=== PATIENT | male | born 1955 | race African-American/Black ===

== ENCOUNTER → 2017-08-17 | Outpatient (CLI) | payer MEDICARE, OTHER ==
[2016-07-16 08:51] VITALS: BP 167/100
[~2017-08-17] MED LIST: BUPIVACAINE MPF 0.25% 10 ML VIAL. ONE; IV NORMAL SALINE 250ML 250 ML ONE; LIDOCAINE 1% PF 30 ML VIAL. ONE; LISI-334 PO; MIDAZOLAM HCL PF 5 MG/5 ML VIAL. ONE; magnesium; methylPREDNISolone ACETATE 40 MG/ML VIAL. ONE; motrin; nexium; potassium; tylenol
== END | disposition home or self-care (01) ==
LOC: SURG 09:46
PROVIDERS: ATTEND Anesthesiology Pain Medicine
DX: M47.816 Spondylosis without myelopathy or radiculopathy, lumbar region (principal); M19.91 Primary osteoarthritis, unspecified site
CPT/HCPCS: 64635; 64636; J1030; J2001; J2250; J3010; J3490; J7050; 99152

== ENCOUNTER → 2017-09-04 | Outpatient (CLI) | payer MEDICARE, OTHER ==
[2016-07-16 08:51] VITALS: BP 167/100
[~2017-09-04] MED LIST changes: +DEXAMETHASONE SOD PHOS 4 MG/ML VIAL ONE; +LIDOCAINE (700MG/PATCH) PATCH. ONE; +MIDAZOLAM HCL PF 2 MG/2 ML VIAL. ONE; -MIDAZOLAM HCL PF 5 MG/5 ML VIAL. ONE; -methylPREDNISolone ACETATE 40 MG/ML VIAL. ONE
== END | disposition home or self-care (01) ==
LOC: SURG 11:59
PROVIDERS: ATTEND Anesthesiology
DX: M47.816 Spondylosis without myelopathy or radiculopathy, lumbar region (principal); I10 Essential (primary) hypertension; M19.91 Primary osteoarthritis, unspecified site; K21.9 Gastro-esophageal reflux disease without esophagitis
CPT/HCPCS: 64635; 64636; J1100; J2001; J2250; J3010; J3490; J7050

== ENCOUNTER → 2017-10-19 | Outpatient (CLI) | payer MEDICARE, OTHER ==
[2016-07-16 08:51] VITALS: BP 167/100
[~2017-10-19] MED LIST changes: -BUPIVACAINE MPF 0.25% 10 ML VIAL. ONE; -DEXAMETHASONE SOD PHOS 4 MG/ML VIAL ONE; -IV NORMAL SALINE 250ML 250 ML ONE; -LIDOCAINE (700MG/PATCH) PATCH. ONE; -LIDOCAINE 1% PF 30 ML VIAL. ONE; -MIDAZOLAM HCL PF 2 MG/2 ML VIAL. ONE
== END | disposition home or self-care (01) ==
LOC: SURG 13:06
PROVIDERS: ATTEND Anesthesiology Pain Medicine
DX: M47.816 Spondylosis without myelopathy or radiculopathy, lumbar region (principal); G89.4 Chronic pain syndrome
CPT/HCPCS: 99214

== ENCOUNTER 2018-03-01 14:16 | Inpatient (IN) | payer MEDICARE, OTHER ==
[~2018-03-01] VITALS: Ht 182.9 cm; Wt 132.0 kg
--- NOTE | 2018-03-01 15:01 | EKG ---
[address] [address] Test Date: 2018-03-01 Test Time: 14:51:00 Pat Name: FRANSISCA BACA Department: Room: Gender: M Law Clerk: YAMILETH : 1955 Requested By: DILSHAD HYDE Order Number: [id number] Reading MD: Roger Callaway MD Measurements Intervals [place] Rate: 98 P: CA: QRS: -24 QRSD: 94 T: 29 QT: 398 QTc: 510 Interpretive Statements SINUS RHYTHM NON-SPECIFIC ST/T CHANGES Electronically Signed On 03-04-2018 16:19:21 CDT by Roger Callaway MD
[2018-03-01 15:09] LABS: BASO % 0 % (0-3); EOS # 0.1 x10^3/uL (0.0-0.7); EOS % 1 % (0-3); HEMATOCRIT 40.6 % (39.0-53.0); LYMPH # 2.2 x10^3/uL (1.0-4.8); LYMPH % 30 % (24-48); MEAN CORPUSCULAR HEMOGLOBIN 33 pg (25-35); MEAN CORPUSCULAR HGB CONC 35 g/dL (31-37); MEAN CORPUSCULAR VOLUME 97 fL (79-100); MONO # 0.7 x10^3/uL (0.0-1.1); MONO % 10 % (0-9); NEUT # 4.3 x10^3uL (1.8-7.7); NEUT % 59 % (31-73); PLATELET COUNT 159 x10^3/uL (140-400); RED CELL DISTRIBUTION WIDTH 14.3 % (11.5-14.5); WHITE BLOOD COUNT 7.3 x10^3/uL (4.0-11.0)
[2018-03-01 15:27] LABS: ALBUMIN 3.7 g/dL (3.4-5.0); ALBUMIN/GLOBULIN RATIO 0.9 (1.0-1.7); CALCIUM 8.8 mg/dL (8.5-10.1); CREATININE 1.1 mg/dL (0.7-1.3); GFR 81.8; MAGNESIUM 0.9 mg/dL (1.8-2.4); TOTAL BILIRUBIN 1.1 mg/dL (0.2-1.0); TOTAL PROTEIN 7.9 g/dL (6.4-8.2)
[2018-03-01 15:28] LABS: POTASSIUM 2.7 mmol/L (3.5-5.1)
--- NOTE | 2018-03-01 16:23 | PHYS DOC ---
Past History Past Medical History: Arthritis, Hypertension Past Surgical History: Knee Replacement Smoking: Non-smoker Alcohol Use: None Additional Alcohol Information: PT. QUIT 2 YEARS AGO. Drug Use: None Adult General Chief Complaint Chief Complaint: Abnormal labs HPI HPI 63-year-old male patient with history of hypertension had routine blood test at his doctor's office this morning and was told that he had abnormal potassium and magnesium and needs to come to emergency room. Patient denies any complaint. She states he had history of alcoholism but did not have alcohol abuse for the last 2 years. Review of Systems Review of Systems Constitutional: Denies fever or chills [] Eyes: Denies change in visual acuity, redness, or eye pain [] HENT: Denies nasal congestion or sore throat [] Respiratory: Denies cough or shortness of breath [] Cardiovascular: No additional information not addressed in HPI [] GI: Denies abdominal pain, nausea, vomiting, bloody stools or diarrhea [] : Denies dysuria or hematuria [] Musculoskeletal: Denies back pain or joint pain [] Integument: Denies rash or skin lesions [] Neurologic: Denies headache, focal weakness or sensory changes [] Endocrine: Denies polyuria or polydipsia [] All other systems were reviewed and found to be within normal limits, except as documented in this note. Current Medications Current Medications Current Medications Medications (Trade) Dose Ordered Sig/Howie Start Time Stop Time Status Last Admin Dose Admin Potassium Chloride 100 ml @ 50 mls/hr Q1H 03/01/18 16:15 03/01/18 18:14 Allergies Allergies Allergies Coded Allergies Type Severity Reaction Last Updated Verified No Known Drug Allergies 03/29/16 No Physical Exam Physical Exam Constitutional: Well developed, well nourished, no acute distress, non-toxic appearance. [] HENT: Normocephalic, atraumatic Eyes: PERRLA, EOMI, conjunctiva normal, no discharge. [] Neck: Normal range of motion, no tenderness, supple, no stridor. [] Cardiovascular:Heart rate regular rhythm, no murmur [] Lungs & Thorax: Bilateral breath sounds clear to auscultation [] Abdomen: Bowel sounds normal, soft, no tenderness, no masses, no pulsatile masses. [] Skin: Warm, dry, no erythema, no rash. [] Back: No tenderness, no CVA tenderness. [] Extremities: No tenderness, no cyanosis, no clubbing, ROM intact, no edema. [] Neurologic: Alert and oriented X 3, normal motor function, normal sensory function, no focal deficits noted. [] Psychologic: Affect normal, judgement normal, mood normal. [] Current Patient Data Vital Signs Vital Signs Date Time Temp Pulse Resp B/P (MAP) Pulse Ox O2 Delivery O2 Flow Rate FiO2 03/01/18 14:56 98.6 113 18 97 Room Air Lab Results Laboratory Tests Test 03/01/18 14:50 03/01/18 16:05 White Blood Count 7.3 x10^3/uL (4.0-11.0) Red Blood Count 4.20 x10^6/uL (4.30-5.70) L Hemoglobin 14.0 g/dL (13.0-17.5) Hematocrit 40.6 % (39.0-53.0) Mean Corpuscular Volume 97 fL (79-100) Mean Corpuscular Hemoglobin 33 pg (25-35) Mean Corpuscular Hemoglobin Concent 35 g/dL (31-37) Red Cell Distribution Width 14.3 % (11.5-14.5) Platelet Count 159 x10^3/uL (140-400) Neutrophils (%) (Auto) 59 % (31-73) Lymphocytes (%) (Auto) 30 % (24-48) Monocytes (%) (Auto) 10 % (0-9) H Eosinophils (%) (Auto) 1 % (0-3) Basophils (%) (Auto) 0 % (0-3) Neutrophils # (Auto) 4.3 x10^3uL (1.8-7.7) Lymphocytes # (Auto) 2.2 x10^3/uL (1.0-4.8) Monocytes # (Auto) 0.7 x10^3/uL (0.0-1.1) Eosinophils # (Auto) 0.1 x10^3/uL (0.0-0.7) Basophils # (Auto) 0.0 x10^3/uL (0.0-0.2) Sodium Level 135 mmol/L (136-145) L Potassium Level 2.7 mmol/L (3.5-5.1) *L Chloride Level 97 mmol/L (98-107) L Carbon Dioxide Level 25 mmol/L (21-32) Anion Gap 13 (6-14) Blood Urea Nitrogen 13 mg/dL (8-26) Creatinine 1.1 mg/dL (0.7-1.3) Estimated GFR (Cockcroft-Gault) 81.8 BUN/Creatinine Ratio 12 (6-20) Glucose Level 135 mg/dL (70-99) H Calcium Level 8.8 mg/dL (8.5-10.1) Phosphorus Level 1.0 mg/dL (2.6-4.7) L Magnesium Level 0.9 mg/dL (1.8-2.4) L Total Bilirubin 1.1 mg/dL (0.2-1.0) H Aspartate Amino Transferase (AST) 154 U/L (15-37) H Alanine Aminotransferase (ALT) 79 U/L (16-63) H Alkaline Phosphatase 116 U/L (46-116) Total Protein 7.9 g/dL (6.4-8.2) Albumin 3.7 g/dL (3.4-5.0) Albumin/Globulin Ratio 0.9 (1.0-1.7) L Glucose (Fingerstick) 124 mg/dL (70-99) H EKG EKG [] Radiology/Procedures Radiology/Procedures [] Course & Med Decision Making Course & Med Decision Making Pertinent Labs reviewed. (See chart for details) Evaluation of patient in ER showed 63-year-old male patient with abnormal labs from physician office. Patient had potassium of 2.7 without any complaint. IV potassium was started. Dr Rodney informed at 1602 and agreed with admission of patient. Dragon Disclaimer Dragon Disclaimer This electronic medical record was generated, in whole or in part, using a voice recognition dictation system. Departure Departure: Impression: Primary Impression: Hypokalemia Disposition: ADMITTED INPATIENT (at 1602) Admitting Physician: Silvio Rodney Condition: IMPROVED Referrals: AKUA NEWMAN MD (PCP) DILSHAD HYDE MD Mar 01, 2018 16:23
[2018-03-01] MEDS: POTASSIUM CHLORIDE 20MEQ 100 ML IV SCH ×2 (16:44→17:15)
[2018-03-01] MEDS ORDERED: SPIR100T2 PO (17:58)
[2018-03-01] MEDS ORDERED: OMEP10CA3 PO (17:58)
[2018-03-01] MEDS ORDERED: HYDR25TA9 PO (17:58)
[2018-03-01] MEDS ORDERED: LISI40TA PO (17:58)
[2018-03-01 18:05] VITALS: BP 135/87
[2018-03-01] MEDS ORDERED: POTASSIUM CHLORIDE 20 MEQ TABLET.ER. PO ONE ×2 (18:30→19:30)
[2018-03-01] MEDS ORDERED: MAGNESIUM SULFATE 2GM 50 ML IV ONE (18:45)
[2018-03-01] MEDS: MAGNESIUM OXIDE 400 MG TABLET PO SCH (19:36)
[2018-03-01 19:55] VITALS: BP 125/77
[2018-03-01 20:41] LABS: CALCIUM 8.8 mg/dL (8.5-10.1); CREATININE 1.2 mg/dL (0.7-1.3); MAGNESIUM 1.4 mg/dL (1.8-2.4); POTASSIUM 3.1 mmol/L (3.5-5.1)
[2018-03-01 22:37] VITALS: BP 123/80
[2018-03-02] VITALS (7 sets, daily range): BP systolic 114–152; BP diastolic 83–96
[2018-03-02] MEDS: PANTOPRAZOLE 40 MG TABLET. PO SCH (05:28)
[2018-03-02 06:42] LABS: BASO % 0 % (0-3); EOS # 0.1 x10^3/uL (0.0-0.7); EOS % 2 % (0-3); HEMATOCRIT 37.8 % (39.0-53.0); HEMOGLOBIN 13.1 g/dL (13.0-17.5); LYMPH # 1.7 x10^3/uL (1.0-4.8); LYMPH % 31 % (24-48); MEAN CORPUSCULAR HEMOGLOBIN 34 pg (25-35); MEAN CORPUSCULAR HGB CONC 35 g/dL (31-37); MEAN CORPUSCULAR VOLUME 98 fL (79-100); MONO # 0.7 x10^3/uL (0.0-1.1); MONO % 13 % (0-9); NEUT % 54 % (31-73); PLATELET COUNT 134 x10^3/uL (140-400); RED BLOOD COUNT 3.87 x10^6/uL (4.30-5.70); RED CELL DISTRIBUTION WIDTH 14.4 % (11.5-14.5); WHITE BLOOD COUNT 5.6 x10^3/uL (4.0-11.0)
[2018-03-02 07:20] LABS: ALBUMIN 3.2 g/dL (3.4-5.0); ALBUMIN/GLOBULIN RATIO 0.9 (1.0-1.7); CALCIUM 8.6 mg/dL (8.5-10.1); CREATININE 0.9 mg/dL (0.7-1.3); GFR 103.1; POTASSIUM 3.1 mmol/L (3.5-5.1); TOTAL BILIRUBIN 0.8 mg/dL (0.2-1.0); TOTAL PROTEIN 6.9 g/dL (6.4-8.2)
[2018-03-02] MEDS ORDERED: POTASSIUM CHLORIDE 20 MEQ TABLET.ER. PO ONE ×3 (08:00→10:00)
[2018-03-02] MEDS ORDERED: MAGNESIUM SULFATE 2GM 50 ML IV ONE (08:00)
[2018-03-02] MEDS: SPIRONOLACTONE 25 MG TABLET PO SCH (08:16)
[2018-03-02] MEDS: MAGNESIUM OXIDE 400 MG TABLET PO SCH ×3 (08:17→20:51)
[2018-03-02] MEDS: LISINOPRIL 20 MG TABLET PO SCH (08:17)
[2018-03-02] MEDS ORDERED: PANTOPRAZOLE 40 MG TABLET. PO SCH (09:00)
[2018-03-02] MEDS ORDERED: MAGN400T22 PO (10:30)
[2018-03-02] MEDS ORDERED: POTA20TA4 PO (10:30)
[2018-03-02 11:49] LABS: CALCIUM 8.8 mg/dL (8.5-10.1); GFR 91.3; MAGNESIUM 1.7 mg/dL (1.8-2.4); POTASSIUM 3.5 mmol/L (3.5-5.1)
--- NOTE | 2018-03-02 15:25 | HP ---
ADMIT DATE: 03/01/2018 HISTORY OF PRESENT ILLNESS: The patient is a 63-year-old -[place] male patient who apparently was seen at his doctor's office and was told he had abnormally low potassium, low magnesium and needs to come to the Emergency Room. The patient himself denied any complaint. He stated that he has history of alcoholism, but not had any alcohol the last 3 years. On questioning him further, he denied any other complaint. PAST MEDICAL HISTORY: Significant for hypertension, generalized osteoarthritis, and hiatal hernia. PAST SURGICAL HISTORY: Significant for arthroscopic bilateral knee surgery; right ankle fracture, status post open reduction and internal fixation; right big toe fracture, right middle finger fracture, status post open reduction and internal fixation; back surgery, esophagogastroduodenoscopy and colonoscopy as well as prostatectomy for prostate cancer. ALLERGIES: He has no known drug allergies. MEDICATIONS: He is currently on following medications: He is on lisinopril 40 mg once a day, spironolactone 100 mg once a day, potassium chloride 20 mEq twice a day, hydrochlorothiazide 25 mg daily. He is on magnesium oxide 1200 mg twice a day and omeprazole 10 mg once a day. FAMILY HISTORY: He has 6 brothers and 2 sisters, 4 of his brothers are . The oldest was 62 and of CVA, second one was about 52 years old and of myocardial infarction, third was 50 years old and because of prostate cancer and fourth because of drug overdose at age of 30. His oldest sister at age of 65 because of congestive heart failure. His younger sister at age of 33 because of drug overdose. His father at the age of 77 because of prostate cancer and mother at the age of 90 because of old age. SOCIAL HISTORY: He is , has 1 son and 2 daughters, never smoked, used to be heavy alcohol drinker, quit drinking about 2 years ago. He has been a heavy drinker for almost 18 years. Drinks whatever comes into his hand and drinks both beer and liquor. Used marijuana before. He is retired from the . REVIEW OF SYSTEMS: The patient denied any blurring of vision, cataract, glaucoma or macular degeneration. Denied any earache, tinnitus or sensorineural deafness. Denied any nosebleeds, stuffy nose or postnasal drip. Denied any sore throat, sore tongue, toothache, hoarseness of voice or difficulty swallowing. Denied any nausea, vomiting, diarrhea or constipation. Denied any hematemesis, melena or hematochezia. Denied any dysuria, frequency or hematuria. Denied any chest pain, shortness of breath, orthopnea, or paroxysmal nocturnal dyspnea. Denied any cough, phlegm or hemoptysis. Denied any chills, rigors, or fever. Denied any dizziness, lightheadedness, or vertigo. PHYSICAL EXAMINATION: GENERAL: On arrival to the Emergency Room, he looked well and was clearly in no apparent respiratory distress. No pallor, jaundice, cyanosis, or thyromegaly. No jugular venous distension. No lower limb edema. VITAL SIGNS: His heart rate was 113, blood pressure was 129/70, temperature was 98.6, respiratory rate was 18 and oxygen saturation was 97% on room air. HEAD, EYES, EARS, NOSE AND THROAT: Showed normocephalic, atraumatic. NECK: Supple. HEART: Showed normal first and second heart sounds with no gallop, rub or murmur. CHEST: Clear to auscultation. No crepitation or rhonchi. ABDOMEN: Distended, soft, nontender. NEUROLOGIC: He was awake, alert, responding appropriately. All cranial nerves intact. EXTREMITIES: He moves extremities without difficulty, ambulates without assistance or assistive devices. LABORATORY DATA: In the Emergency Room showed a white cell count 7300, hemoglobin 14, hematocrit 40, MCV 97 and platelet count of 159,000 with normal manual differential. His chemistry showed serum sodium 135, potassium 2.7, chloride 97, bicarbonate 25, anion gap of 13, BUN 13, creatinine 1.1, estimated GFR was 82 mL per minute. His glucose was 135. His calcium was 8.8, phosphorus 1, magnesium was 0.9. Total bilirubin and alkaline phosphatase normal. AST, ALT slightly elevated. His total protein was 7.9, albumin was 3.7. ASSESSMENT AND PLAN: In summary, this is a 63-year-old -[place] male patient who came with multiple biochemical anomalies including hypokalemia, hypomagnesemia, and hypophosphatemia. His hypokalemia and hypomagnesemia can be explained on the basis of side effect of hydrochlorothiazide. I am unable to explain his extreme hypophosphatemia, given that he is not actually alcoholic at least for the time being, he is not septic. He is not on the ventilator. He does not seem to have any evidence of malabsorption. My plan is to obviously continue to replenish his potassium, magnesium and phosphorus. HERRERA SUAREZ MD DR: MINE/hilda JOB#: [id number] / [id number]
[2018-03-03] MEDS: PANTOPRAZOLE 40 MG TABLET. PO SCH (05:40)
[2018-03-03 05:42] VITALS: BP 134/94
[2018-03-03 06:02] LABS: CALCIUM 8.7 mg/dL (8.5-10.1); CREATININE 0.8 mg/dL (0.7-1.3); GFR 118.1; MAGNESIUM 1.3 mg/dL (1.8-2.4); PHOSPHORUS 1.2 mg/dL (2.6-4.7)
[2018-03-03] MEDS: LISINOPRIL 20 MG TABLET PO SCH (08:26)
[2018-03-03] MEDS: MAGNESIUM OXIDE 400 MG TABLET PO SCH (08:26)
[2018-03-03] MEDS: SPIRONOLACTONE 25 MG TABLET PO SCH (08:26)
[2018-03-03] MEDS ORDERED: MAGNESIUM SULFATE 2GM 50 ML IV ONE (09:00)
[2018-03-03] MEDS ORDERED: MAGNESIUM OXIDE 400 MG TABLET PO SCH (09:00)
[2018-03-03 11:23] VITALS: BP 120/80
--- NOTE | 2018-03-03 11:52 | PN ---
DATE: 03/02/2018 SUBJECTIVE: The patient is sitting on the edge of the bed comfortably in no apparent distress. He denied any complaint. He came yesterday as a referral from his primary care physician with abnormal lab work including hypokalemia, hypomagnesemia and hypophosphatemia. His magnesium was extremely low at 0.9. His phosphorus was 1 and potassium was 2.7. We did replenish his potassium and is now 3.5 and his magnesium is up to 1.7. His liver enzymes continued to be slightly elevated; however, his phosphorus is low. PHYSICAL EXAMINATION: GENERAL: When I examined him this morning, he looked well and was clearly in no apparent respiratory distress. There is no pallor, jaundice, cyanosis, or thyromegaly. No jugular venous distension. No lower limb edema. VITAL SIGNS: His heart rate was 90, blood pressure 119/83, temperature was 98.4, respiratory rate was 20, and oxygen saturation was 93% on room air. HEAD, EYES, EARS, NOSE AND THROAT: Showed normocephalic, atraumatic. NECK: Supple. HEART: Showed normal first and second heart sounds. No gallop, rub or murmur. CHEST: Clear to auscultation. No crepitation or rhonchi. ABDOMEN: Distended, soft, nontender. NEUROLOGIC: He was awake, alert, responding appropriately. All cranial nerves intact. He moves extremities without difficulty, ambulates without assistance or assistive devices. His intake was 600, no output was recorded. LABORATORY DATA: As of this morning showed a serum sodium 136, potassium 3.5, chloride 100, bicarbonate 25, anion gap of 11, BUN 10, creatinine 1, estimated GFR was 92 mL per minute. His glucose was 153, calcium was 8.8, and magnesium was 1.7. His white cell count was 5600, hemoglobin 13, hematocrit 38, MCV 98 and platelet count of 134,000. ASSESSMENT: Hypokalemia and hypomagnesemia, most likely the result of hydrochlorothiazide. I did ask the patient to discontinue this medication altogether as his blood pressure seems to be well controlled without it. He is already on lisinopril, spironolactone and potassium. I think once his hydrochlorothiazide was discontinued, hypophosphatemia. PLAN: I will arrange for him to check his intact PTH and decide on further management accordingly as his calcium is not elevated; however, he might have hypoparathyroidism. He might need to be referred to a real estate administrative assistant or an wood mechanist to investigate this further. HERRERA SUAREZ MD DR: MINE/hilda JOB#: [id number] / [id number]
--- NOTE | 2018-03-03 21:09 | DS ---
DATE OF DISCHARGE: 03/03/2018 HOSPITAL COURSE: The patient is resting, slightly propped up in bed, in no apparent respiratory distress. Questioning him, he denied any complaint. Nursing staff, however, stated that his magnesium and phosphate are low; however, his potassium is much improved now, is 4 mEq per liter. PHYSICAL EXAMINATION: GENERAL: When I examined him this morning, he looked well and was clearly in no apparent respiratory distress, pale. No jaundice, cyanosis, or thyromegaly. No jugular venous distension. No limb edema. VITAL SIGNS: His heart rate was 87, blood pressure 134/94, temperature was 98.2, respiratory rate was 87, and his oxygen saturation was 95% on room air. HEAD, EYES, EARS, NOSE AND THROAT: Showed normocephalic, atraumatic. NECK: Supple. HEART: Showed normal first and second heart sounds with no gallop, rub or murmur. CHEST: Clear to auscultation. No crepitation or rhonchi. ABDOMEN: Distended, soft. No guarding or rigidity. No organomegaly. All hernial orifices intact. Bowel sounds normal. NEUROLOGIC: He was awake, alert, responding appropriately. His cranial nerves intact. EXTREMITIES: He moves extremities without difficulty. He ambulates without assistance or assistive devices. His intake was 518. No output was recorded. LABORATORY DATA: As of this morning showed a serum sodium 138, potassium 4, chloride 104, bicarbonate 23, anion gap of 11, BUN 9, creatinine 0.8, estimated GFR was 118 mL per minute, his glucose 121, calcium was 8.7, phosphorus 1.2, magnesium was 1.3. His ammonia was 39. His prothrombin time was 11.7, INR 1.1. His white cell count was 5600, hemoglobin 13, hematocrit 38, MCV 98 and platelet count 134. DISCHARGE MEDICATIONS: He was discharged to continue lisinopril 40 mg once a day, magnesium oxide 1600 mg twice a day, omeprazole 10 mg once a day, potassium chloride 20 mEq twice a day and spironolactone 100 mg once a day. I did discontinue his hydrochlorothiazide. FINAL DISCHARGE DIAGNOSES: Hypokalemia and hypomagnesemia, most likely secondary to his hydrochlorothiazide. They did recommend that the patient should discontinue that. Hypophosphatemia, I have not found any explanation for that. I have ordered intact PTH to see whether he has a primary hyperparathyroidism, although his calcium is normal. I asked him to contact the lab as this is as doubt and it will be available next Sunday. He should repeat his lab work again in a few days to make sure that his potassium remained stable. He may not require the potassium and spironolactone once hydrochlorothiazide was removed. HERRERA SUAREZ MD DR: MINE/hilda JOB#: [id number] / [id number]
[2018-03-04 17:13] LABS: CALCIUM PTH 8.9 mg/dL (8.6-10.2); CREATININE PTH 0.78 mg/dL (0.76-1.27); PTH INTACT 29 pg/mL (15-65)
== END 2018-03-03 12:25 | disposition home or self-care (01) | DRG 642 ==
LOC: ER 14:16 → 1 SOUTH 17:05
PROVIDERS: ADMIT Internal Medicine; ATTEND Internal Medicine
DX: E83.39 Other disorders of phosphorus metabolism (principal); E87.6 Hypokalemia; E83.42 Hypomagnesemia; I10 Essential (primary) hypertension; M15.9 Polyosteoarthritis, unspecified; F10.21 Alcohol dependence, in remission; Z96.659 Presence of unspecified artificial knee joint; T50.2X5A Adverse effect of carbonic-anhydrase inhibitors, benzothiadiazides and other diuretics, initial encounter; Z80.42 Family history of malignant neoplasm of prostate; Z82.3 Family history of stroke; Z82.49 Family history of ischemic heart disease and other diseases of the circulatory system; Z85.46 Personal history of malignant neoplasm of prostate; Z87.81 Personal history of (healed) traumatic fracture; Y92.89 Other specified places as the place of occurrence of the external cause; Z90.79 Acquired absence of other genital organ(s)
CPT/HCPCS: 36415; 80048; 80053; 82140; 82947; 83735; 83970; 84100; 85025; 85610; 93005; J3475; J3480; 99285-25

== ENCOUNTER → 2018-03-26 | Outpatient (CLI) | payer MEDICARE, OTHER ==
[2018-03-03 11:23] VITALS: BP 120/80
[~2018-03-26] MED LIST changes: +HYDR25TA9 PO; +LISI40TA PO; +MAGN400T22 PO; +OMEP10CA3 PO; +POTA20TA4 PO; +SPIR100T2 PO
== END | disposition home or self-care (01) ==
LOC: SURG 11:28
PROVIDERS: ATTEND Anesthesiology
DX: M54.5 Low back pain (principal)
CPT/HCPCS: 99214

== ENCOUNTER → 2018-08-30 | Outpatient (CLI) | payer MEDICARE, OTHER ==
[~2018-08-30] MED LIST changes: +BUPIVACAINE MPF 0.5% 30 ML VIAL. ONE; +DEXAMETHASONE SOD PHOS 4 MG/ML VIAL ONE; +LIDOCAINE 1% PF 30 ML VIAL. ONE; -SPIR100T2 PO; +SPIR100T4 PO
== END | disposition home or self-care (01) ==
LOC: SURG 09:11
PROVIDERS: ATTEND Anesthesiology Pain Medicine
DX: M47.816 Spondylosis without myelopathy or radiculopathy, lumbar region (principal); I10 Essential (primary) hypertension; G47.30 Sleep apnea, unspecified; M19.90 Unspecified osteoarthritis, unspecified site; Z79.899 Other long term (current) drug therapy; Z98.890 Other specified postprocedural states
CPT/HCPCS: 64493; 64494; J1100; J2001; J3490

== ENCOUNTER → 2018-09-24 | Day surgery (SDC) | payer MEDICARE, OTHER ==
[~2018-09-24] MED LIST changes: +BUPIVACAINE MPF 0.25% 30 ML VIAL. ONE; -BUPIVACAINE MPF 0.5% 30 ML VIAL. ONE; +GABA-586 PO; +IV RINGERS SOLUTION,LACTATED 1,000 ML IV SCH; +MIDAZOLAM HCL PF 2 MG/2 ML VIAL. ONE; +OXYC5CAP PO
[2018-09-24 09:40] VITALS: BP 115/76
== END | disposition home or self-care (01) ==
LOC: SURG 07:21
PROVIDERS: ATTEND Anesthesiology
DX: M47.816 Spondylosis without myelopathy or radiculopathy, lumbar region (principal); Z88.5 Allergy status to narcotic agent; I10 Essential (primary) hypertension; M19.90 Unspecified osteoarthritis, unspecified site; Z85.46 Personal history of malignant neoplasm of prostate; Z98.890 Other specified postprocedural states; Z79.899 Other long term (current) drug therapy
CPT/HCPCS: 64635; 64636; 99152; J1100; J2001; J2250; J3010; J3490; J7120

== ENCOUNTER → 2018-11-01 | Day surgery (SDC) | payer MEDICARE, OTHER ==
[~2018-11-01] MED LIST changes: -DEXAMETHASONE SOD PHOS 4 MG/ML VIAL ONE; +HYDR-2145 PO; -HYDR25TA9 PO; -IV RINGERS SOLUTION,LACTATED 1,000 ML IV SCH; +methylPREDNISolone ACETATE 40 MG/ML VIAL. ONE
[2018-11-01 10:23] VITALS: BP 127/78
== END | disposition home or self-care (01) ==
LOC: SURG 07:42
PROVIDERS: ATTEND Anesthesiology Pain Medicine
DX: M47.816 Spondylosis without myelopathy or radiculopathy, lumbar region (principal); I10 Essential (primary) hypertension; M19.90 Unspecified osteoarthritis, unspecified site; Z85.46 Personal history of malignant neoplasm of prostate; Z98.890 Other specified postprocedural states; Z88.5 Allergy status to narcotic agent; Z79.899 Other long term (current) drug therapy
CPT/HCPCS: 64635; 64636; J1030; J2001; J2250; J3010; J3490

== ENCOUNTER → 2020-09-15 | Outpatient (CLI) | payer MEDICARE, OTHER ==
[~2020-09-15] MED LIST changes: +BUPIVACAINE MPF 0.25% 10 ML VIAL. ONE; -BUPIVACAINE MPF 0.25% 30 ML VIAL. ONE; -MIDAZOLAM HCL PF 2 MG/2 ML VIAL. ONE; -OMEP10CA3 PO; +OMEP10CA4 PO; +OMEP20TA63 PO; +SILD50TA PO; -methylPREDNISolone ACETATE 40 MG/ML VIAL. ONE
[2020-09-15 14:08] VITALS: BP 130/84
== END | disposition home or self-care (01) ==
LOC: SURG 12:44
PROVIDERS: ATTEND Anesthesiology
DX: M47.816 Spondylosis without myelopathy or radiculopathy, lumbar region (principal); M51.36 Other intervertebral disc degeneration, lumbar region; M79.10 Myalgia, unspecified site; Z79.899 Other long term (current) drug therapy; Z88.6 Allergy status to analgesic agent; Z88.8 Allergy status to other drugs, medicaments and biological substances; Z98.890 Other specified postprocedural states
CPT/HCPCS: 64493; 64494; J2001; J3490

== ENCOUNTER → 2020-10-27 | Day surgery (SDC) | payer MEDICARE, OTHER ==
[2020-10-27 11:25] VITALS: BP 141/89
== END | disposition home or self-care (01) ==
LOC: SURG 10:33
PROVIDERS: ATTEND Anesthesiology
DX: M47.816 Spondylosis without myelopathy or radiculopathy, lumbar region (principal); M79.10 Myalgia, unspecified site; M19.91 Primary osteoarthritis, unspecified site; F10.21 Alcohol dependence, in remission; K21.9 Gastro-esophageal reflux disease without esophagitis; Z79.899 Other long term (current) drug therapy; Z88.5 Allergy status to narcotic agent; Z88.8 Allergy status to other drugs, medicaments and biological substances; Z82.3 Family history of stroke; Z80.42 Family history of malignant neoplasm of prostate; Z96.669 Presence of unspecified artificial ankle joint; Z96.653 Presence of artificial knee joint, bilateral; Z85.46 Personal history of malignant neoplasm of prostate; Z87.81 Personal history of (healed) traumatic fracture; Z90.79 Acquired absence of other genital organ(s); Z82.49 Family history of ischemic heart disease and other diseases of the circulatory system
CPT/HCPCS: 64493; 64494; J2001; J3490

== ENCOUNTER → 2021-01-19 | Day surgery (SDC) | payer MEDICARE, OTHER ==
[~2021-01-19] MED LIST changes: +BUPIVACAINE MPF 0.25% 10 ML VIAL. IJ ONE; +DEXAMETHASONE SOD PHOS 4 MG/ML VIAL. INT ART ONE; +DEXAMETHASONE SOD PHOS 4 MG/ML VIAL. ONE; +LIDOCAINE 1% PF 30 ML VIAL. INJ ONE; -LISI-334 PO; +LISI20TA18 PO; -LISI40TA PO; +LISI40TA6 PO; +MIDAZOLAM HCL PF 2 MG/2 ML VIAL. IVP ONE; +MIDAZOLAM HCL PF 2 MG/2 ML VIAL. ONE
[2021-01-19 09:42] VITALS: BP 133/91
== END | disposition home or self-care (01) ==
LOC: SURG 07:47
PROVIDERS: ATTEND Anesthesiology
DX: M47.816 Spondylosis without myelopathy or radiculopathy, lumbar region (principal); G47.30 Sleep apnea, unspecified; I10 Essential (primary) hypertension; M19.91 Primary osteoarthritis, unspecified site; Z88.5 Allergy status to narcotic agent; Z88.8 Allergy status to other drugs, medicaments and biological substances; Z79.899 Other long term (current) drug therapy; Z88.6 Allergy status to analgesic agent; Z82.3 Family history of stroke; Z80.42 Family history of malignant neoplasm of prostate; Z96.653 Presence of artificial knee joint, bilateral; Z98.890 Other specified postprocedural states; Z87.81 Personal history of (healed) traumatic fracture; Z90.79 Acquired absence of other genital organ(s); Z82.49 Family history of ischemic heart disease and other diseases of the circulatory system
CPT/HCPCS: 64635; 64636; 99152; 99153; J1100; J2250; J3010; J3490; 62321

== ENCOUNTER → 2021-03-23 | Day surgery (SDC) | payer MEDICARE, OTHER ==
[~2021-03-23] MED LIST changes: -BUPIVACAINE MPF 0.25% 10 ML VIAL. IJ ONE; +BUPIVACAINE MPF 0.25% 30 ML VIAL. INJ ONE; +DEXAMETHASONE SOD PHOS 10 MG/ML VIAL. ONE; -DEXAMETHASONE SOD PHOS 4 MG/ML VIAL. INT ART ONE; +IOHEXOL 300 MG/ML 50 ML VIAL. INT ART ONE; +LIDOCAINE 1% Multi-Dose 20 ML VIAL. INJ ONE; -LIDOCAINE 1% PF 30 ML VIAL. INJ ONE; -MIDAZOLAM HCL PF 2 MG/2 ML VIAL. IVP ONE; +methylPREDNISolone ACETATE 80 MG/ML VIAL. INT ART ONE
[2021-03-23 09:46] VITALS: BP 139/85
== END | disposition home or self-care (01) ==
LOC: SURG 07:38
PROVIDERS: ATTEND Anesthesiology
DX: M47.816 Spondylosis without myelopathy or radiculopathy, lumbar region (principal); M51.36 Other intervertebral disc degeneration, lumbar region; E66.9 Obesity, unspecified; G47.30 Sleep apnea, unspecified; I10 Essential (primary) hypertension; K21.9 Gastro-esophageal reflux disease without esophagitis; M19.90 Unspecified osteoarthritis, unspecified site; Z90.79 Acquired absence of other genital organ(s); Z96.653 Presence of artificial knee joint, bilateral; Z79.899 Other long term (current) drug therapy; Z88.5 Allergy status to narcotic agent; Z88.8 Allergy status to other drugs, medicaments and biological substances; Z98.890 Other specified postprocedural states; Z82.3 Family history of stroke; Z82.49 Family history of ischemic heart disease and other diseases of the circulatory system
CPT/HCPCS: 64635; 64636; 99152; J1040; J1100; J2250; J3010; J3490; Q9967

== ENCOUNTER 2021-07-17 08:52 | Inpatient (IN) | payer MEDICARE, OTHER ==
[~2021-07-17] VITALS: Ht 188 cm; Wt 155.6 kg
[~2021-07-17 08:52] MED LIST changes: -BUPIVACAINE MPF 0.25% 10 ML VIAL. ONE; -BUPIVACAINE MPF 0.25% 30 ML VIAL. INJ ONE; -DEXAMETHASONE SOD PHOS 10 MG/ML VIAL. ONE; -DEXAMETHASONE SOD PHOS 4 MG/ML VIAL. ONE; -IOHEXOL 300 MG/ML 50 ML VIAL. INT ART ONE; -LIDOCAINE 1% Multi-Dose 20 ML VIAL. INJ ONE; -LIDOCAINE 1% PF 30 ML VIAL. ONE; -MIDAZOLAM HCL PF 2 MG/2 ML VIAL. ONE; +POTA-121 PO; -POTA20TA4 PO; -methylPREDNISolone ACETATE 80 MG/ML VIAL. INT ART ONE
--- NOTE | 2021-07-17 09:02 | PHYS DOC ---
Past History Past Medical History: Arthritis, Hypertension Past Surgical History: Knee Replacement Smoking: Non-smoker Alcohol Use: None Drug Use: None Adult General HPI HPI Patient is a 66-year-old male presenting via EMS for lower extremity swelling. This is an acute on chronic issue. Reports his lower extremities have been swelling more so than usual past month. He does admit he has been drinking more water over the past several weeks due to increased heat but admits he has been compliant with sodium restriction and taking all daily medications specifically lisinopril and spironolactone. He does not know what heart issues he has, he is established at [facility] for all of his health care, does admit he has a pulmonary function technician there and recently had an echocardiogram performed for which she does not know the results of. He is otherwise presenting in no acute distress, denies any headache, vision changes, chest pain, ripping or tearing sensation in chest, shortness of breath, abdominal pain, bladder or bowel issues Review of Systems Review of Systems Fourteen body systems of review of systems have been reviewed. See HPI for pertinent positives and negative responses, other mcgee all other systems are negative, non-pertinent or non-contributory Allergies Allergies Allergies Coded Allergies Type Severity Reaction Last Updated Verified morphine Allergy Unknown 03/23/21 Yes Uncoded Allergies Type Severity Reaction Last Updated Verified LOBSTER Allergy Unknown hives 09/15/20 Physical Exam Physical Exam Constitutional: Well developed, well nourished, no acute distress, non-toxic appearance. HENT: Normocephalic, atraumatic, bilateral external ears normal, oropharynx moist, no oral exudates, nose normal. Eyes: PERRLA, EOMI, conjunctiva normal, no discharge. Neck: Normal range of motion, no tenderness, supple, no stridor. Cardiovascular: Heart rate regular, sinus rhythm, no murmurs rubs or gallops Lungs & Thorax: Bilateral breath sounds clear to auscultation Abdomen: Bowel sounds normal, soft and protuberant, no tenderness, no masses, no pulsatile masses. Nonsurgical abdomen, no peritoneal signs Skin: Warm, dry, no erythema, no rash. Skin breakdown present to right posterior knee approximately quarter size with superficial epidermis missing from recent blister that patient self popped within past 48 hours Back: No tenderness, no CVA tenderness. Extremities: No tenderness, no cyanosis, no clubbing, ROM intact, 2+ pitting edema to bilateral lower extremities Neurologic: Alert and oriented X 3, grossly normal motor & sensory function, no focal deficits noted. Psychologic: Affect normal, judgement normal, mood normal. Current Patient Data Vital Signs Vital Signs Date Time Temp Pulse Resp B/P (MAP) Pulse Ox O2 Delivery O2 Flow Rate FiO2 07/17/21 09:53 98.9 94 20 171/97 98 Room Air Vital Signs Date Time Temp Pulse Resp B/P (MAP) Pulse Ox O2 Delivery O2 Flow Rate FiO2 07/17/21 09:53 98.9 94 20 171/97 98 Room Air Lab Results Laboratory Tests Test 07/17/21 09:30 07/17/21 09:59 07/17/21 10:16 Sodium Level 136 mmol/L Potassium Level 3.4 mmol/L Chloride Level 103 mmol/L Carbon Dioxide Level 19 mmol/L Anion Gap 14 Blood Urea Nitrogen 10 mg/dL Creatinine 0.9 mg/dL Estimated GFR (Cockcroft-Gault) 102.2 Glucose Level 90 mg/dL Calcium Level 7.5 mg/dL Troponin I Quantitative 0.094 ng/mL CI-Btu-W-Type Natriuretic Peptide 285 pg/mL White Blood Count 5.5 x10^3/uL Red Blood Count 3.01 x10^6/uL Hemoglobin 10.9 g/dL Hematocrit 32.2 % Mean Corpuscular Volume 107 fL Mean Corpuscular Hemoglobin 36 pg Mean Corpuscular Hemoglobin Concent 34 g/dL Red Cell Distribution Width 17.1 % Platelet Count 43 x10^3/uL Neutrophils (%) (Auto) 62 % Lymphocytes (%) (Auto) 25 % Monocytes (%) (Auto) 11 % Eosinophils (%) (Auto) 2 % Basophils (%) (Auto) 0 % Neutrophils # (Auto) 3.5 x10^3uL Lymphocytes # (Auto) 1.4 x10^3/uL Monocytes # (Auto) 0.6 x10^3/uL Eosinophils # (Auto) 0.1 x10^3/uL Basophils # (Auto) 0.0 x10^3/uL Platelet Estimate Pending SARS-CoV-2 Antigen (Rapid) Negative Current Medications Medications (Trade) Dose Ordered Sig/Howie Route PRN Reason Start Time Stop Time Status Last Admin Dose Admin Furosemide (Lasix) 100 mg 1X ONCE IVP 07/17/21 10:15 07/17/21 10:17 DC 07/17/21 10:15 Lisinopril (Prinivil) 20 mg 1X ONCE PO 07/17/21 10:30 07/17/21 10:31 DC 07/17/21 10:43 Acetaminophen (Tylenol) 650 mg 1X ONCE PO 07/17/21 10:30 07/17/21 10:31 DC 07/17/21 10:43 Aspirin (Aspirin Enteric Coated) 81 mg STK-MED ONCE PO 07/17/21 10:40 07/17/21 10:40 DC EKG EKG EKG ordered and interpreted by myself at 0918 hrs. as sinus rhythm at 92 bpm, prolonged QTC at 508 otherwise unremarkable intervals, left axis deviation, no obvious ischemic findings, no STEMI Radiology/Procedures Radiology/Procedures EXAM: CHEST 1 VIEW History: Lower extremity edema COMPARISON: None available. TECHNIQUE: Single portable radiograph of the chest FINDINGS: Low lung volumes and technique accentuates heart size and pulmonary vascularity. Mild bibasilar lung airspace opacities. IMPRESSION: Mild bibasilar lung airspace opacities likely atelectasis or infiltrates. Electronically signed by: Masood Ochoa MD (07/17/2021 9:21 AM) [id number] Heart Score C/O Chest Pain: No HEART Score for Chest Pain: HEART Score for Chest Pain Response (Comments) Value History Slighlty/Non-Suspicious 0 ECG Nonspecific Repolarizatio 1 Age > 65 2 Risk Factors >3 Risk Factors or Hx CAD 2 Troponin >1-<3x Normal Limit 1 Total 6 Risk Factors: Risk Factors: DM, Current or recent (<one month) smoker, HTN, HLP, family histo ry of CAD, obesity. Risk Scores: Risk Factors: DM, Current or recent (<one month) smoker, HTN, HLP, family history of CAD, obesity. Course & Med Decision Making Course & Med Decision Making Airway patent, breathing unlabored, IV access and vitals obtained concerning for hypertension only HPI, physical examination and comprehensive ER work-up nonconcerning for any emergent or surgical issues but patient does appear grossly fluid overloaded that is likely causing his elevated troponin at bedside, admits patient has been less mobile than usual and she is concerned of him falling as a result of recent weight gain and lower extremity edema. Joint decision among all to admit for continued diuresis and medical management I attempted to contact [facility] system as patient belongs to them but they report they were full due to COVID-19 pandemic. As such, hospitalist at [facility] contacted and case reviewed, patient was excepted for admission I updated patient and on proposed plan of care that included hospital admission at [facility] and they were amenable. All questions and concerns addressed. Dragon Disclaimer Dragon Disclaimer This electronic medical record was generated, in whole or in part, using a voice recognition dictation system. Departure Departure: Impression: Primary Impression: Acute exacerbation of CHF (congestive heart failure) Additional Impression: Elevated troponin Disposition: ADMITTED INPATIENT Admitting Physician: Silvio Rodney Condition: STABLE Referrals: BHARAT DUNBAR MD (PCP) Problem Qualifiers NANETTE BURTON DO Jul 17, 2021 09:02
--- NOTE | 2021-07-17 09:23 | RAD ---
EXAM: CHEST 1 VIEW History: Lower extremity edema COMPARISON: None available. TECHNIQUE: Single portable radiograph of the chest FINDINGS: Low lung volumes and technique accentuates heart size and pulmonary vascularity. Mild bibas ilar lung airspace opacities. IMPRESSION: Mild bibasilar lung airspace opacities likely atelectasis or infiltrates. Electronically signed by: Masood Ochoa MD (07/17/2021 9:21 AM) [id number]
[2021-07-17 09:50] LABS: CALCIUM 7.5 mg/dL (8.5-10.1); CREATININE 0.9 mg/dL (0.7-1.3); GFR 102.2; POTASSIUM 3.4 mmol/L (3.5-5.1)
[2021-07-17 10:14] LABS: BASO % 0 % (0-3); EOS # 0.1 x10^3/uL (0.0-0.7); EOS % 2 % (0-3); HEMATOCRIT 32.2 % (39.0-53.0); HEMOGLOBIN 10.9 g/dL (13.0-17.5); LYMPH # 1.4 x10^3/uL (1.0-4.8); LYMPH % 25 % (24-48); MEAN CORPUSCULAR HEMOGLOBIN 36 pg (25-35); MEAN CORPUSCULAR HGB CONC 34 g/dL (31-37); MEAN CORPUSCULAR VOLUME 107 fL (79-100); MONO # 0.6 x10^3/uL (0.0-1.1); MONO % 11 % (0-9); NEUT # 3.5 x10^3uL (1.8-7.7); NEUT % 62 % (31-73); PLATELET COUNT 43 x10^3/uL (140-400); RED BLOOD COUNT 3.01 x10^6/uL (4.30-5.70); RED CELL DISTRIBUTION WIDTH 17.1 % (11.5-14.5); WHITE BLOOD COUNT 5.5 x10^3/uL (4.0-11.0)
[2021-07-17] MEDS ORDERED: FUROSEMIDE 100 MG/10 ML VIAL IVP ONE (10:15)
[2021-07-17] MEDS ORDERED: ACETAMINOPHEN 325 MG TABLET PO ONE (10:30)
[2021-07-17] MEDS ORDERED: LISINOPRIL 20 MG TABLET PO ONE (10:30)
[2021-07-17] MEDS ORDERED: ASPIRIN ENTERIC COATED 81 MG TABLET.DR. PO ONE (10:40)
--- NOTE | 2021-07-17 11:04 | EKG ---
[address] [address] Test Date: 2021-07-17 Test Time: 09:03:22 Pat Name: FRANSISCA BACA Department: Room: Gender: M Lead Pressman: CLAUS : 1955 Requested By: NANETTE BURTON Order Number: [id number] Reading MD: Measurements Intervals [place] Rate: 92 P: 34 PA: 142 QRS: -19 QRSD: 94 T: 37 QT: 406 QTc: 508 Interpretive Statements SINUS RHYTHM LEFTWARD AXIS QRS(T) CONTOUR ABNORMALITY CONSISTENT WITH ANTEROSEPTAL INFARCT PROBABLY OLD ABNORMAL ECG RI6.02 No previous ECG available for comparison
[2021-07-17] MEDS ORDERED: NITROGLYCERIN SUBLINGUAL 0.4 MG BOTTLE OF 25. SL PRN (11:30)
[2021-07-17] MEDS ORDERED: ACETAMINOPHEN 325 MG TABLET PO PRN (11:30)
[2021-07-17 12:14] LABS: PLT ESTIMATE DECREASED (ADEQUATE)
[2021-07-17] MEDS ORDERED: POTASSIUM CHLORIDE 20 MEQ TABLET.ER. PO ONE (15:45)
--- NOTE | 2021-07-17 17:45 | RAD ---
Single view pelvis and two-view left hip dated 07/17/2021. No comparison available. Clinical data indication: Pain after fall. FINDINGS: AP view pelvis shows normal bony alignment. No displaced fracture. Moderate degenerative change of th e bilateral hip joint, left greater than right. No periostitis or bone destruction. The pelvic ring i s intact. Spondylotic changes of the lower lumbar spine. IMPRESSION: 1. No evidence of displaced fracture. There is persistent clinical concern for occult fracture or ins ufficiency fracture, MRI would better evaluate. 2. Moderate bilateral hip DJD, left greater than right. Electronically signed by: Rome Johnston MD (07/17/2021 5:42 PM) JACIEL
[2021-07-17 17:50] LABS: ALBUMIN 2.2 g/dL (3.4-5.0); DIRECT BILIRUBIN 2.9 mg/dL (0.0-0.2); TOTAL BILIRUBIN 5.1 mg/dL (0.2-1.0); TOTAL PROTEIN 6.8 g/dL (6.4-8.2)
[2021-07-17] MEDS: POTASSIUM CHLORIDE 20 MEQ TABLET.ER. PO SCH (18:30)
--- NOTE | 2021-07-17 19:43 | HP ---
ADMIT DATE: 07/17/2021 HISTORY OF PRESENT ILLNESS: The patient is a 66-year-old male patient who was seen at the Emergency Room of [facility] with weakness and swelling of both lower extremities. This is an acute on chronic issue. Reports lower extremities have been swollen more than the last time. He does admit he has been drinking more bottles over the last several weeks due to increased heat, admits he has been compliant with sodium restriction and taking daily medications, specifically lisinopril and spironolactone. He denied any cardiac problems. He usually follows at the [facility] for all his [facility]. He apparently has had an echocardiogram done recently there; however, he does not know the results of that. On questioning him further, he said he fell about 2 weeks ago and he has pain in his left hip and left thigh and that he has been taking ibuprofen 400 mg twice a day for almost a month. On questioning him further about his salt in his food, he stated that he has been compliant. He denied any chest pain. Denied any orthopnea or paroxysmal nocturnal dyspnea, although he said that he sleeps most time in his recliner. He denied any dysuria, frequency or hematuria. He has no problems controlling his urine; however, he has difficulty getting into the bathroom according to him. He was extensively investigated in the Emergency Room, has had lab work as well as imaging studies. His lab work showed that he has macrocytic anemia with thrombocytopenia. His kidney function surprisingly is normal and his creatinine has risen slightly to 0.094, but trending down. His beta-natriuretic peptide was only 285. His coronavirus rapid testing was negative. His chest x-ray showed low lung volumes and and pulmonary vascularity, mild bibasilar lung airspace opacities. He was treated with IV Lasix and given an aspirin together with his lisinopril and will be admitted for further evaluation and treatment. PAST MEDICAL HISTORY: Significant for hypertension, hyperlipidemia and prostate cancer. He also has bilateral cataract together with morbid obesity. PAST SURGICAL HISTORY: Significant for left foot and ankle fracture, status post open reduction and internal fixation; bilateral total knee arthroplasty, prostatectomy, right little finger surgery as well as left big toe surgery. ALLERGIES: He has no known drug allergies. MEDICATIONS: He is currently on following medications: He is on spironolactone 100 mg daily. He is on sildenafil for Viagra 50 mg daily, lisinopril 40 mg once a day, gabapentin 300 mg 3 times a day, potassium chloride 20 mEq twice a day, hydrochlorothiazide 25 mg daily, magnesium oxide 400 mg twice a day and omeprazole 20 mg daily. He is also on ibuprofen 400 mg twice a day for almost a month according to him. SOCIAL HISTORY: He is . He does not smoke. He used to be a heavy drinker before, has not drank for years. Does not use any drugs. 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 PHYSICAL EXAMINATION: GENERAL: When I examined him, he was pale, not jaundiced, cyanosed. No lymphadenopathy, no thyromegaly, no jugular venous distention. No lower limb edema. VITAL SIGNS: His heart rate was 94, blood pressure was 171/97, temperature was 98.9, respiratory rate was 20 and oxygen saturation was 98%. HEAD, EYES, EARS, NOSE, AND THROAT: Normocephalic, atraumatic. NECK: Supple. HEART: Showed normal first and second heart sounds, no gallop or murmur. CHEST: Clear to auscultation. No crepitation or rhonchi. ABDOMEN: Distended, soft, nontender. NEUROLOGIC: He is awake, alert, responding appropriately. All cranial nerves intact. He moves upper extremities much than his lower extremities. He has marked scrotal swelling as well as bilateral lower extremity swelling. LABORATORY DATA: His lab work showed a serum sodium of 136, potassium 3.4, chloride 103, bicarbonate 19, anion gap of 14, BUN 10, creatinine 0.9. Estimated GFR was 102 mL per minute. His glucose was 90, calcium was 7.5. First set troponin was 0.094 and beta-natriuretic peptide was 285. His white cell count was 5500, hemoglobin 10.9, hematocrit 32, MCV 107 and platelet count of 43,000 with normal manual differential. ASSESSMENT AND PLAN: This is a 66-year-old male patient who was admitted with generalized weakness and poor mobility. He has a fall about 2 weeks ago with pain in his left hip joint and marked generalized anasarca with marked scrotal swelling. He is known to have hypertension, hyperlipidemia. His lab work showed that he has macrocytic anemia and thrombocytopenia suggesting either vitamin B12 deficiency and/or alcoholic liver disease. My plan is to arrange for him to have an x-ray of the left hip joint. We will arrange for bilateral venous Doppler ultrasound. Arrangements have been made also to check his prothrombin time and INR as well as ammonia and vitamin B12 level. We will continue treatment with IV Lasix and decide further management accordingly. SABINE/JUSTICE DR: Allyn TID: [id number]
[2021-07-17] MEDS: oxyCODONE IR 5 MG TABLET PO SCH (20:29)
[2021-07-17] MEDS: MAGNESIUM OXIDE 400 MG TABLET PO SCH (20:29)
--- NOTE | 2021-07-17 21:14 | RAD ---
Bilateral lower extremity venous Doppler dated 07/17/2021 9:10 PM COMPARISON: none. CLINICAL INDICATION: Lower extremity swelling Reason: marked swelling of both lower extremity and imm obility tohether w / Spl. Instructions: / History: FINDINGS: Grayscale, color-flow and spectral waveform analysis performed to include the deep venous system of b ilateral lower extremity. There is normal compressibility, phasicity and augmentation of flow through out. No filling defects are seen. Within the lower medial thigh on the left, there is a complex fluid collection that measures up to 8. 1 cm maximum dimension. IMPRESSION: 1. No evidence of bilateral lower extremity deep vein thrombosis. 2. Complex fluid collection in the medial lower thigh subcutaneous tissues, nonspecific. Consider hem atoma or abscess. Electronically signed by: Rome Johnston MD (07/17/2021 9:12 PM) JACIEL
[2021-07-17 22:57] VITALS: BP 180/75
[2021-07-18] VITALS (8 sets, daily range): BP systolic 147–177; BP diastolic 58–99
[2021-07-18 06:04] LABS: HEMOGLOBIN 10.2 g/dL (13.0-17.5); RED BLOOD COUNT 2.81 x10^6/uL (4.30-5.70); RED CELL DISTRIBUTION WIDTH 16.4 % (11.5-14.5); WHITE BLOOD COUNT 4.3 x10^3/uL (4.0-11.0)
[2021-07-18 06:18] LABS: ALBUMIN 2.2 g/dL (3.4-5.0); ALBUMIN/GLOBULIN RATIO 0.5 (1.0-1.7); CALCIUM 7.4 mg/dL (8.5-10.1); GFR 90.5; POTASSIUM 3.2 mmol/L (3.5-5.1); TOTAL BILIRUBIN 4.7 mg/dL (0.2-1.0); TOTAL PROTEIN 6.6 g/dL (6.4-8.2)
[2021-07-18] MEDS: oxyCODONE IR 5 MG TABLET PO SCH ×2 (09:29→20:53)
[2021-07-18] MEDS: POTASSIUM CHLORIDE 20 MEQ TABLET.ER. PO SCH ×3 (09:29→17:08)
[2021-07-18] MEDS: FUROSEMIDE 100 MG/10 ML VIAL IVP SCH (09:31)
[2021-07-18] MEDS: SPIRONOLACTONE 25 MG TABLET PO SCH (10:12)
[2021-07-18] MEDS: MAGNESIUM OXIDE 400 MG TABLET PO SCH ×2 (10:12→20:53)
[2021-07-18] MEDS: LISINOPRIL 20 MG TABLET PO SCH (10:12)
--- NOTE | 2021-07-18 16:15 | NUR ---
PT ARRIVED TO UNIT VIA EMS. PT IN ROOM 119. PT ALERT AND ORIENTED. PT WAS UNAWARE THAT HE HAD TESTED POSITIVE FOR COVID-19, DESPITE HAVING BOTH VACCINATIONS.
--- NOTE | 2021-07-18 17:01 | NUR ---
PT HAS NICKEL SIZED BLISTER THAT HE POPPED ON RIGHT INNER THIGH. PICTURE TAKEN. WOUND CARE NOT CONSULTED. WOUND OPEN TO AIR.
--- NOTE | 2021-07-19 02:22 | PN ---
DATE: 07/18/2021 SUBJECTIVE: The patient is resting, slightly propped up in bed, in no apparent distress. He seemed to be more awake, alert. His swelling has largely subsided and his pain is much less today. PHYSICAL EXAMINATION: GENERAL: When I examined him, he was pale, but not jaundice or cyanosed, no lymphadenopathy or thyromegaly. No jugular venous distention. He has marked bilateral lower limb edema that is much improved than yesterday. VITAL SIGNS: His heart rate was 83, blood pressure is 151/81, temperature was 98.4, respiratory rate was 18 and oxygen saturation was 95% on room air. HEAD, EYES, EARS, NOSE, AND THROAT: Normocephalic, atraumatic. NECK: Supple. HEART: Normal first and second heart sounds, no gallop, rub or murmur. CHEST: Clear to auscultation, no crepitation or rhonchi. ABDOMEN: Distended, soft, nontender. There is no guarding or rigidity. No organomegaly. All hernial orifice intact. Bowel sounds normal. NEUROLOGIC: He was definitely more awake, alert, responding appropriately. He is able to move all extremities without difficulty. He has an indwelling Montero catheter and the scrotal swelling is much improved, although has not completely subsided. His intake was incompletely recorded, output was 3700. LABORATORY DATA: This morning showed a white cell count of 4300, hemoglobin 10, hematocrit 30, MCV 107 and platelet count of 39,000. His chemistry showed a serum sodium 139, potassium 3.2, chloride 105, bicarbonate 26, anion gap of 8, BUN 10, creatinine 1, estimated GFR was 90 mL per minute. His glucose 114, calcium was 7.4, total bilirubin 4.7. His AST and alkaline phosphatase are elevated and ALT was normal at 40. Total protein 6.6, albumin was 2.2. ASSESSMENT: 1. Generalized weakness and poor mobility. 2. Has a fall about 2 weeks ago with pain in his left hip joint; however, x-ray showed no evidence of fracture but advanced osteoarthritis is more on the left than right hip joint. 3. Hypertension. 4. Hyperlipidemia. PLAN: His lab work showed that he has microcytic anemia and thrombocytopenia and marked hypoalbuminemia. The patient stated that he has had a history of excessive alcohol intake before making liver disease advanced alcoholic liver disease likely. His MCV was high and I did check his B12 level, the results are still pending. He is also jaundiced. His total bilirubin is actually 5.1 and alkaline phosphatase high raising the possibility that he might have biliary obstruction and therefore, I will check his PT/INR as well as he will be n.p.o. from midnight tonight. We will arrange for him to have an abdominal ultrasound. He has also hypokalemia for which I will replenish him with a potassium, I in fact gave him 40 mEq 3 times a day and he is already on spironolactone 100 mg once a day. We will consult physical and occupational therapy. He seems to be doing much better. SUJEY DR: Allyn TID: [id number]
[2021-07-19 02:58] VITALS: BP 169/99
[2021-07-19 06:20] LABS: HEMATOCRIT 30.9 % (39.0-53.0); HEMOGLOBIN 10.5 g/dL (13.0-17.5); RED BLOOD COUNT 2.87 x10^6/uL (4.30-5.70); RED CELL DISTRIBUTION WIDTH 16.3 % (11.5-14.5); WHITE BLOOD COUNT 4.3 x10^3/uL (4.0-11.0)
[2021-07-19 06:34] LABS: ALBUMIN 2.2 g/dL (3.4-5.0); ALBUMIN/GLOBULIN RATIO 0.5 (1.0-1.7); CALCIUM 7.6 mg/dL (8.5-10.1); CREATININE 0.9 mg/dL (0.7-1.3); GFR 102.2; POTASSIUM 3.2 mmol/L (3.5-5.1); TOTAL BILIRUBIN 4.5 mg/dL (0.2-1.0); TOTAL PROTEIN 6.7 g/dL (6.4-8.2)
--- NOTE | 2021-07-19 08:30 | RAD ---
EXAM: Abdomen sonogram. HISTORY: Abnormal liver function laboratory values. Covid 19. TECHNIQUE: Sonographic imaging of the abdomen was performed. COMPARISON: None. FINDINGS: The liver is normal in size. No focal hepatic lesion is seen. There is hepatic steatosis. T here is hepatofugal flow within the main portal vein. There is cholelithiasis. There is no evidence o f cholecystitis. The right kidney is normal in size. There is no hydronephrosis. The pancreas, inferi or vena cava and aorta are predominantly obscured due to patient body habitus. IMPRESSION: 1. Hepatic steatosis. 2. Hepatofugal flow within the main portal vein. This can be seen in the setting of portal hypertensi on due to cirrhosis. 3. Cholelithiasis. 4. Limited exam due to patient body habitus. Electronically signed by: Shagufta Felder MD (07/19/2021 8:27 AM) [id number]
[2021-07-19] MEDS: POTASSIUM CHLORIDE 20 MEQ TABLET.ER. PO SCH ×2 (08:37→11:31)
[2021-07-19] MEDS: MAGNESIUM OXIDE 400 MG TABLET PO SCH (08:38)
[2021-07-19] MEDS: SPIRONOLACTONE 25 MG TABLET PO SCH (08:38)
[2021-07-19] MEDS: LISINOPRIL 20 MG TABLET PO SCH (08:38)
[2021-07-19] MEDS: oxyCODONE IR 5 MG TABLET PO SCH (08:39)
[2021-07-19] MEDS: FUROSEMIDE 100 MG/10 ML VIAL IVP SCH (08:40)
--- NOTE | 2021-07-19 10:48 | NUR ---
PT UPSET WITH STAFF FOR SUGGESTING THAT HE USE A WALKER TO GET UP AND GO TO THE BATHROOM LIKE HE DOES AT HOME. PT STATES HE IS NOT GOING TO PAY ALL THIS MONEY TO BE TREATED RUDELY. PT SAYS HE IS GOING TO GO HOME WHETHER DR. SUAREZ WANTS HIM TO OR NOT, BUT HE IS GOING TO WAIT TO SEE HIM TODAY. PT/OT SAW THE PT AND GOT HIM UP IN THE CHAIR AND SAID HE DID OK WITH A FOUR WHEEL WALKER LIKE HE USES AT HOME.
[2021-07-19 10:55] VITALS: BP 133/83
[2021-07-19 14:52] VITALS: BP 124/85
[2021-07-19] MEDS ORDERED: OXYC5TAB4 PO (16:06)
[2021-07-19] MEDS ORDERED: FURO-68 PO (16:06)
--- NOTE | 2021-07-19 16:46 | NUR ---
PT DISCHARGED. PT WHEELED BY STAFF TO VEHICLE AND WAS PICKED UP BY . THIS NURSE WITNESSED PT PICKING AT BLISTER AND MAKING IT BLEED. THIS NURSE PUT A BANDAGE ON THE BLISTER AFTER PHOTOGRAPHING IT. PT STABLE. PT GIVEN HARDCOPY PRESCRIPTIONS.
--- NOTE | 2021-07-19 20:17 | DS ---
DATE OF DISCHARGE: 07/19/2021 HOSPITAL COURSE: The patient is a 66-year-old -[place] male patient who was admitted through the Emergency Room with a complaint of generalized anasarca with marked swelling in both legs, scrotal swelling and pain in his left hip joint. He was started on IV Lasix and was extensively investigated. His lab work showed that he has microcytic anemia with hemoglobin 10, hematocrit 30 with normal white cell count; however, he has thrombocytopenia. His chemistry showed that he has severe hypoalbuminemia and elevated ammonia and hyperbilirubinemia. The patient has had an ultrasound of the abdomen, which showed that the liver is normal in size. No focal hepatic lesion is seen. There is hepatic steatosis. There is hepatofugal flow within the main portal vein. There is cholelithiasis. There is no evidence of cholecystitis. The right kidney is normal in size. There is no hydronephrosis. The pancreas, inferior vena cava and aorta are predominantly obscured due to patient's body habitus. The patient's swelling has largely subsided and the patient's mobility has improved. A decision was made to discharge him home to continue on his current medication. I also advised him to avoid nonsteroidal, anti-inflammatory medication as well as Tylenol. He was given prescription for immediate release oxycodone and was advised to follow with financial compliance manager or supervisor [facility]. PHYSICAL EXAMINATION: GENERAL: When I saw him in the afternoon, the patient was definitely much improved. He was sitting in his chair comfortably, in no apparent distress. He was pale, but no jaundice, cyanosis or thyromegaly. No jugular venous distention. No limb edema. VITAL SIGNS: His heart rate was 87, blood pressure is 124/85, temperature was 98.4, respiratory rate 20, and oxygen saturation was 99% on room air. HEAD, EYES, EARS, NOSE, AND THROAT: Normocephalic, atraumatic. NECK: Supple. HEART: Showed normal first and second heart sounds, no gallop or murmur. CHEST: Clear to auscultation. No crepitation or rhonchi. ABDOMEN: Distended, soft, nontender. NEUROLOGIC: He was definitely more awake, alert, responding appropriately. All cranial nerves intact. He moves extremities without difficulty, ambulates with a walker. His intake was 960, output was 4300. LABORATORY DATA: As of this morning, his serum sodium was 140, potassium 3.2, chloride 105, bicarbonate 29, anion gap of 6, BUN 8, creatinine 0.9. Estimated GFR was 102 mL per minute. His glucose was 116, calcium was 7.6. Total bilirubin is 4.5, AST and alkaline phosphatase are elevated. ALT was normal. His ammonia was 69. Total protein was 6.7, albumin 2.2. His vitamin B12 was 964 pg/mL. His white cell count was 4300, hemoglobin 10.5, hematocrit 30, MCV 107 and platelets 39,000. His prothrombin time was 19.3, INR 1.9 and his coronavirus by PCR was positive; however, the patient was asymptomatic and was vaccinated. DISCHARGE MEDICATIONS: He was discharged home to continue on furosemide 40 mg once a day; oxycodone immediate release 5 mg every 6 hours as needed; lisinopril 20 mg once a day; magnesium oxide 400 mg 4 tablets b.i.d.; potassium chloride, Klor-Con 20 mEq twice a day; and spironolactone 100 mg once a day. FINAL DISCHARGE DIAGNOSES: Alcoholic liver disease with marked hypoalbuminemia and severe thrombocytopenia, hypertension, morbid obesity, weakness and poor mobility has improved. CHRISTELLE DR: Allyn TID: [id number]
[2021-07-29] MEDS ORDERED: FURO40TA4 PO ×2 (13:55→14:04)
[2021-07-29] MEDS ORDERED: CEFD300C PO ×2 (13:55→14:04)
== END 2021-07-19 16:48 | disposition home or self-care (01) | DRG 432 ==
LOC: ER 08:52 → 1 SOUTH 11:19 → ER 07-18 15:15 → 1 SOUTH 07-18 15:37
PROVIDERS: ADMIT Internal Medicine; ATTEND Internal Medicine
DX: K70.30 Alcoholic cirrhosis of liver without ascites (principal); U07.1 COVID-19; Z68.41 Body mass index [BMI] 40.0-44.9, adult; I11.0 Hypertensive heart disease with heart failure; I50.9 Heart failure, unspecified; D50.9 Iron deficiency anemia, unspecified; D69.6 Thrombocytopenia, unspecified; E78.5 Hyperlipidemia, unspecified; K76.0 Fatty (change of) liver, not elsewhere classified; E66.01 Morbid (severe) obesity due to excess calories; D53.9 Nutritional anemia, unspecified; E88.09 Other disorders of plasma-protein metabolism, not elsewhere classified; K80.20 Calculus of gallbladder without cholecystitis without obstruction; M19.90 Unspecified osteoarthritis, unspecified site; Z96.653 Presence of artificial knee joint, bilateral; Z88.8 Allergy status to other drugs, medicaments and biological substances; Z85.46 Personal history of malignant neoplasm of prostate
CPT/HCPCS: 36415; 71045; 73501; 76705; 80048; 80053; 80076; 82140; 82607; 83880; 84484; 85025; 85027; 85610; 87426; 93005; 93970; 96374; 96376; U0003; 97530; 97535; 99285-25

== ENCOUNTER 2021-07-24 18:00 | Inpatient (IN) | payer MEDICARE, OTHER ==
[~2021-07-24] VITALS: Ht 188 cm; Wt 143.3 kg
[~2021-07-24 18:00] MED LIST changes: +FURO-68 PO; +OXYC5TAB4 PO
--- NOTE | 2021-07-24 18:24 | PHYS DOC ---
Past History Past Medical History: Arthritis, Hypertension Past Surgical History: No Surgical History Smoking: Non-smoker Alcohol Use: None Drug Use: None Adult General Chief Complaint Chief Complaint: TESTICULAR PAIN OR INJURY HPI HPI Patient is a 66-year-old male with a past medical history significant for e ndorsed heart failure, hypertension, hyperlipidemia and former alcoholic who presents to the emergency department with scrotal swelling and pain. States it has been like that since he was discharged from the hospital. States he is taking all his medications as prescribed and is making urine daily, more than usual but is still swelling and gaining weight quickly. States he thinks he has gained about 10 pounds over the last couple of weeks. Endorses some dyspnea on exertion, orthopnea, and bilateral lower extremity edema. Denies any recent traumas, travels, illnesses, fevers, chest pain, abdominal pain, nausea, vomiting, diarrhea. Denies any numbness/weakness/tingling. Review of Systems Review of Systems Review of systems otherwise unremarkable except noted in HPI Allergies Allergies Allergies Coded Allergies Type Severity Reaction Last Updated Verified morphine Allergy Unknown 03/23/21 Yes Uncoded Allergies Type Severity Reaction Last Updated Verified LOBSTER Allergy Unknown hives 09/15/20 Physical Exam Physical Exam Constitutional: Well developed, well nourished, no acute distress, non-toxic appearance. [] HENT: Normocephalic, atraumatic, bilateral external ears normal, oropharynx moist, no oral exudates, nose normal. [] Eyes: PERRLA, EOMI, conjunctiva appears to have signs scleral icterus, no discharge. [] Neck: Normal range of motion, no tenderness, supple, no stridor. [] Cardiovascular: Sinus tachycardia Lungs & Thorax: Bilateral breath sounds clear to auscultation [] Abdomen: soft, no tenderness, no masses, no pulsatile masses. Due to: Significantly swollen/edematous scrotum with no obvious erythema, infections or testicular masses [] Skin: Warm, dry, no erythema, no rash. [] Back: No tenderness, no CVA tenderness. [] Extremities: Significant bilateral lower extremity 3+ pitting edema, no signs of infection, neurovascular exam intact Neurologic: Alert and oriented X 3, no focal deficits noted. [] Psychologic: Affect normal, judgement normal, mood normal. [] EKG EKG [] Radiology/Procedures Radiology/Procedures [] Heart Score C/O Chest Pain: No Risk Factors: Risk Factors: DM, Current or recent (<one month) smoker, HTN, HLP, family history of CAD, obesity. Risk Scores: Risk Factors: DM, Current or recent (<one month) smoker, HTN, HLP, family history of CAD, obesity. Course & Med Decision Making Course & Med Decision Making Patient is a 66-year-old male who presents with a chief complaint of scrotal and bilateral lower extremity swelling and weight gain Vital signs notable for tachycardia, and hypertension. Physical exam noted above. Patient on the monitor with IV access established. [] Dragon Disclaimer Dragon Disclaimer This electronic medical record was generated, in whole or in part, using a voice recognition dictation system. Departure Departure: Impression: Primary Impression: Advanced cirrhosis of liver Additional Impressions: Jaundice Bilirubinemia Hypomagnesemia Hypoalbuminemia Epididymitis Anasarca Disposition: ADMITTED INPATIENT Admitting Physician: Bert Villeda Referrals: BHARAT DUNBAR MD (PCP) Problem Qualifiers DAKOTA CHAUHAN MD Jul 24, 2021 18:24
--- NOTE | 2021-07-24 19:12 | EKG ---
[address] [address] Test Date: 2021-07-24 Test Time: 18:30:20 Pat Name: FRANSISCA BACA Department: Room: Gender: M Shift Manager: EMANI : 1955 Requested By: DAKOTA CHAUHAN Order Number: [id number] Reading MD: Measurements Intervals [place] Rate: 93 P: 38 ND: 194 QRS: -20 QRSD: 96 T: 44 QT: 396 QTc: 495 Interpretive Statements SINUS RHYTHM LEFTWARD AXIS PROLONGED QT NO SPECIFIC ECG ABNORMALITIES RI6.02 No previous ECG available for comparison
[2021-07-24 19:33] LABS: BASO % 1 % (0-3); EOS # 0.1 x10^3/uL (0.0-0.7); EOS % 2 % (0-3); HEMATOCRIT 33.8 % (39.0-53.0); HEMOGLOBIN 11.2 g/dL (13.0-17.5); LYMPH # 1.3 x10^3/uL (1.0-4.8); LYMPH % 27 % (24-48); MEAN CORPUSCULAR HEMOGLOBIN 36 pg (25-35); MEAN CORPUSCULAR HGB CONC 33 g/dL (31-37); MEAN CORPUSCULAR VOLUME 110 fL (79-100); MONO # 1.3 x10^3/uL (0.0-1.1); MONO % 25 % (0-9); NEUT # 2.3 x10^3uL (1.8-7.7); NEUT % 45 % (31-73); PLATELET COUNT 113 x10^3/uL (140-400); RED BLOOD COUNT 3.08 x10^6/uL (4.30-5.70); RED CELL DISTRIBUTION WIDTH 16.5 % (11.5-14.5); WHITE BLOOD COUNT 5.1 x10^3/uL (4.0-11.0)
[2021-07-24 19:37] LABS: GFR 90.5; POTASSIUM 4.6 mmol/L (3.5-5.1)
--- NOTE | 2021-07-24 19:45 | RAD ---
CT scan of the pelvis without contrast 07/24/2021 CLINICAL HISTORY: Pelvic cramping. Testicular swelling. TECHNIQUE: Unenhanced, contiguous, 5 mm axial sections were obtained through the lower pelvis to incl ude the scrotum. One or more of the following individualized dose reduction techniques were utilized for this study: 1. Automated exposure control. 2. Adjustment of the mA and/or kV according to patient size. 3. Use of iterative reconstruction technique. FINDINGS: Edema is seen throughout the soft tissues of the proximal thighs. There are large bilateral hydroceles. The urinary bladder is contracted. Calcifications are seen within the pelvis consistent with phleboliths. No free fluid is seen. Moderate to severe degenerative changes are seen involving b oth hips, left greater than right. IMPRESSION: Large bilateral hydroceles. Electronically signed by: Amdaeo Richardson MD (07/24/2021 7:42 PM) [id number]
[2021-07-24 19:51] LABS: ALBUMIN 2.5 g/dL (3.4-5.0); ALBUMIN/GLOBULIN RATIO 0.5 (1.0-1.7); MAGNESIUM 1.4 mg/dL (1.8-2.4); TOTAL BILIRUBIN 5.6 mg/dL (0.2-1.0); TOTAL PROTEIN 7.5 g/dL (6.4-8.2)
[2021-07-24 20:17] LABS: COLOR,URINE AMBER
--- NOTE | 2021-07-24 20:17 | RAD ---
Exam: Chest one view INDICATION: Short of air, CHF, hypertension, Covid positive TECHNIQUE: Frontal view of the chest Comparisons: None FINDINGS: The cardiomediastinal silhouette and pulmonary vessels are within normal limits. The lung and pleural spaces are clear. IMPRESSION: No acute cardiopulmonary process. Electronically signed by: Haleigh Gibson MD (07/24/2021 8:15 PM) CATHY
[2021-07-24 20:18] LABS: BACTERIA,URINE 0 /HPF (0-FEW); BILIRUBIN,URINE SMALL (NEG); CLARITY,URINE CLEAR; GLUCOSE,URINE NEG (NEG); NITRITE,URINE NEG (NEG); RBC,URINE OCC /HPF (0-2); SQUAMOUS EPITHELIAL CELL,UR MANY /LPF; UROBILINOGEN,URINE >=8.0 mg/dL (0.2 mg/dL); WBC,URINE OCC /HPF (0-4)
[2021-07-24] MEDS ORDERED: KETOROLAC 15 MG/ML VIAL. IVP ONE (20:30)
[2021-07-24] MEDS ORDERED: IV RINGERS SOLUTION,LACTATED 1,000 ML IV ONE (20:30)
[2021-07-24] MEDS ORDERED: POTASSIUM CHLORIDE 20 MEQ TABLET.ER. PO ONE (20:30)
[2021-07-24] MEDS ORDERED: FUROSEMIDE 40 MG/4 ML VIAL IVP ONE (20:30)
[2021-07-24] MEDS ORDERED: MAGNESIUM SULFATE 2GM 50 ML IV ONE (20:30)
--- NOTE | 2021-07-24 20:51 | RAD ---
Scrotal ultrasound 07/24/2021 CLINICAL HISTORY: Scrotal swelling. TECHNIQUE: Using a combination real-time ultrasound imaging and color-flow and postoperative imaging techniques, duplex evaluation of scrotal sac and its contents was performed. Multiple images were obt ained. FINDINGS: Both testicles are within normal limits in size and echogenicity. The right testicle measur es 3.3 x 2.8 x 2.5 cm in longitudinal, transverse, and AP dimensions. The left testicle measures 3.8 x 2.3 x 2.2 cm in size. Normal color-flow and pulse Doppler imaging of both testicles is seen. No abn ormality of either testicle is noted. The epididymis is enlarged bilaterally which may reflect epidid ymitis. No hydrocele or varicocele is seen. Marked scrotal wall thickening and edema is seen. No abno rmal fluid collection is seen. IMPRESSION: 1. The epididymis are enlarged bilaterally. These findings could reflect epididymitis. 2. No abnormality of either testicle is seen. 3. Marked scrotal wall thickening and edema. Electronically signed by: Amadeo Richardson MD (07/24/2021 8:48 PM) [id number]
[2021-07-24] MEDS ORDERED: FOLIC ACID 1 MG TABLET PO ONE (21:00)
[2021-07-24] MEDS ORDERED: ALBUMIN HUMAN 5% 250 ML IV ONE (21:00)
[2021-07-24] MEDS ORDERED: diphenhydrAMINE 50 MG/ML VIAL IVP ONE (21:15)
[2021-07-24] MEDS ORDERED: levoFLOXacin 500 MG TABLET PO ONE (21:15)
[2021-07-24 22:20] VITALS: BP 160/94
--- NOTE | 2021-07-24 22:20 | NUR ---
Pt admitted to [facility] room 122 from ER via rney, accompanied by EMS and nursing staff. Pt moved over from gurney to bed x4 assist. Pt here for c/o leg and scrotal edema. Admission assessment completed. Pt placed on Telemetry, ST ach noted on monitor. Health history and home medications reviewed with pt. Pt was recently here 07/17 to 07/19 for similar complaints but "it was mainly my legs, not my scrotum and the legs got better." Pt with +3 edema to BLE and +4 edema to scrotum. Pt also with popped blister to back of right knee/upper calf. Pictures taken using [employer] system. Open blister left open to air per request. Elevated scrotum with pillowcase for support. Legs elevated with pillows. PT/OT, CM, Wound and Dietary consulted. SCDs for VTE. Pt lives at home with . Pt is UTD on Covid vaccine, got Moderna vaccine on 01/12/21 and 02/10/21 however pt tested +Covid per PCR swab on 07/17/21. Pt placed in airborne & contact precautions since still in 10day window. Pt was given written information regarding hospital policies, unit procedures and contact persons. Valuables were checked and left at bedside. Pt denied need for HS snack.
[2021-07-24] MEDS ORDERED: SILD100T59 PO (23:26)
[2021-07-24] MEDS ORDERED: SPIR25TA5 PO (23:26)
[2021-07-24] MEDS ORDERED: FURO40TA4 PO (23:26)
[2021-07-24] MEDS ORDERED: OMEP20CA16 PO (23:26)
[2021-07-25 02:50] VITALS: BP 131/81
[2021-07-25 05:50] VITALS: BP 145/85
[2021-07-25 05:58] LABS: BASO % 1 % (0-3); EOS # 0.1 x10^3/uL (0.0-0.7); EOS % 3 % (0-3); HEMATOCRIT 30.7 % (39.0-53.0); HEMOGLOBIN 10.2 g/dL (13.0-17.5); LYMPH # 1.7 x10^3/uL (1.0-4.8); LYMPH % 34 % (24-48); MEAN CORPUSCULAR HEMOGLOBIN 36 pg (25-35); MEAN CORPUSCULAR HGB CONC 33 g/dL (31-37); MEAN CORPUSCULAR VOLUME 109 fL (79-100); MONO # 1.2 x10^3/uL (0.0-1.1); MONO % 24 % (0-9); NEUT # 1.9 x10^3uL (1.8-7.7); NEUT % 38 % (31-73); PLATELET COUNT 81 x10^3/uL (140-400); RED BLOOD COUNT 2.82 x10^6/uL (4.30-5.70); RED CELL DISTRIBUTION WIDTH 16.3 % (11.5-14.5); WHITE BLOOD COUNT 4.9 x10^3/uL (4.0-11.0)
[2021-07-25 06:14] LABS: ALBUMIN 2.1 g/dL (3.4-5.0); ALBUMIN/GLOBULIN RATIO 0.5 (1.0-1.7); CALCIUM 7.6 mg/dL (8.5-10.1); GFR 90.5; POTASSIUM 4.1 mmol/L (3.5-5.1); TOTAL BILIRUBIN 5.8 mg/dL (0.2-1.0); TOTAL PROTEIN 6.4 g/dL (6.4-8.2)
[2021-07-25] MEDS ORDERED: ALBUMIN HUMAN 5% 250 ML IV ONE (09:00)
[2021-07-25] MEDS: FUROSEMIDE 40 MG/4 ML VIAL IVP SCH ×2 (09:42→15:53)
--- NOTE | 2021-07-25 10:31 | HP ---
ADMIT DATE: 07/25/2021 ATTENDING PHYSICIAN: Dr. Villeda. CHIEF COMPLAINT: Scrotal swelling. HISTORY OF PRESENT ILLNESS: The patient is a 66-year-old gentleman with known cirrhosis of the liver from chronic alcoholism. He states he quit drinking 3 years ago. He has significant scrotal edema. He had an ultrasound done which showed minimal epididymitis. He is wet. He was recently discharged from the hospital. He has cirrhosis of the liver. He has gained about 10 pounds in the last several weeks. On exam, he is volume overloaded. He has significant anasarca, lower extremity edema and significant scrotal edema. No recent trauma. He has very little insight into his condition. I had a long talk with them detailing what liver failure is and why he is retaining fluid. He is admitted then with symptomatic volume overload, anasarca related to his cirrhosis of the liver and significant scrotal edema. PAST MEDICAL HISTORY: Significant for essential hypertension, degenerative arthritis, morbid obesity and chronic alcoholism. He states he quit drinking 3 years ago. ALLERGIES: HE HAS ALLERGIES TO MORPHINE AND SHELLFISH. CURRENT MEDICATIONS: Include the following: Whether he is compliant remains to be seen. He was scheduled for Lasix 40 mg daily, magnesium oxide, omeprazole, oxycodone p.r.n., potassium supplementation, p.r.n. Viagra and Aldactone. SOCIAL HISTORY: He is a nonsmoker. FAMILY HISTORY: Father of complications of prostate cancer at age 74. Mom of old age at 86. REVIEW OF SYSTEMS: Except for the swelling, he does not monitor his weights. He has decreased activity due to swelling. He denied any chest pain, shortness of breath or recent COVID exposure. He had a recent hospitalization for liver disease. All other systems were reviewed and turned to be negative. PHYSICAL EXAMINATION: GENERAL: When I saw him, this is a pleasant, alert gentleman. VITAL SIGNS: Initial vital signs showed a blood pressure 131/81 mmHg, temperature 98.9 degrees Fahrenheit, oxygen saturation 97% on room air. He was afebrile, pulse 87 and regular. HEENT: Sclerae are anicteric on exam. Pupils are reactive. Oropharynx is clear. NECK: Supple. LUNGS: Diminished breath sounds at bases. CARDIOVASCULAR: Showed regular heart tones. No gallops. ABDOMEN: Obese, protuberant. I cannot palpate any organ enlargement. Bowel sounds are hypoactive. EXTREMITIES: Show 4+ edema extending all the way up to his thighs. He has significant anasarca. The scrotal sac is markedly large and uncomfortable. SKIN: Otherwise, warm and dry. PERTINENT LABORATORY STUDIES: Admission hemoglobin was 11.2 g/dL with a white count of 5100. MCV is 110. His creatinine is 1.0 mg/dL. Nonfasting blood sugar 137, total bilirubin 5.6, direct bilirubin is 3.5, alkaline phosphatase is 256. Cardiac enzymes negative for coronary ischemia. Albumin is diminished at 2.5 g/dL. ASSESSMENT: 1. A 66-year-old gentleman with cirrhosis of the liver, chronic end stage. 2. He has significant anasarca. I estimated about 30-40 pounds of third space fluid. 3. Mild anemia of chronic disease. 4. Chronic alcoholism. 5. Noncompliance of meds. 6. Degenerative arthritis. 7. Mild evidence of epididymitis. PLAN: 1. Admit to the inpatient unit. 2. He was given empiric antibiotics less on the ED. 3. Diuresis with Lasix 80 mg IV twice a day. 4. Daily weights. 5. Fluid restriction to 1200 mL limited day and I explained to him this is necessary to achieve a net loss of fluids. 6. Some home meds continued. 7. Daily serial chemistry panel to monitor his electrolytes and creatinine. His prognosis is guarded. He is a FULL CODE. LOGAN DR: Debbie TID: [id number] CC: [facility]
[2021-07-25 11:08] VITALS: BP 148/86
[2021-07-25 15:26] VITALS: BP 149/73
--- NOTE | 2021-07-25 17:24 | NUR ---
Nursing notes In bed, verbalized pain at 7, pain medication administered, assisted with elimination, on fluid and sodium restriction.
[2021-07-25 18:55] VITALS: BP 137/74
[2021-07-25 23:01] VITALS: BP 127/58
[2021-07-26 05:50] VITALS: BP 139/70
[2021-07-26 06:31] LABS: CREATININE 0.9 mg/dL (0.7-1.3); GFR 102.2; POTASSIUM 3.7 mmol/L (3.5-5.1)
[2021-07-26] MEDS: POTASSIUM CHLORIDE 20 MEQ TABLET.ER. PO SCH ×2 (08:32→20:56)
[2021-07-26] MEDS: oxyCODONE IR 5 MG TABLET PO PRN ×2 (08:32→20:57)
[2021-07-26] MEDS: FUROSEMIDE 40 MG/4 ML VIAL IVP SCH ×2 (08:32→16:53)
[2021-07-26] MEDS: LACTOBACILLUS RHAMNOSUS GG 1 CAPSULE. PO SCH ×2 (08:35→20:56)
--- NOTE | 2021-07-26 08:38 | PN ---
DATE: 07/26/2021 ATTENDING PHYSICIAN: Dr. Villeda. SUBJECTIVE: He has diuresed well. He has no new complaints. He did have a positive COVID swab on 07/17. Nevertheless, he is asymptomatic. He states he has had his vaccinations. OBJECTIVE FINDINGS: VITAL SIGNS: Today, weight is down from 159 kilos to 152 kilos since admission. Blood pressure is 127/58, temperature 98.7 degrees Fahrenheit, oxygen sat 95% on room air. HEENT: Head is without trauma. Pupils are reactive. Sclerae nonicteric. Oropharynx clear. NECK: Supple. LUNGS: Shallow respirations, but good air movement. CARDIOVASCULAR: Showed distant heart tones. No gallop. ABDOMEN: Obese. There is no guarding or rebound tenderness. EXTREMITIES: Still shows 4+ edema. The scrotal edema and swelling is less pronounced not as tight. PERTINENT LABORATORY STUDIES: The sodium this morning is 136 mEq per liter, potassium 3.7 mEq per liter. Creatinine paradoxically is down to 0.9 mg/dL. His liver panel on admission was noted. ASSESSMENT: 1. A 66-year-old gentleman with anasarca. 2. Cirrhosis of liver due to chronic alcohol use. 3. Significant pedal and scrotal edema. 4. Anemia of chronic disease. 5. History of chronic alcoholism. 6. Degenerative arthritis with chronic low back pain. 7. Mild evidence of epididymitis. PLAN: 1. Continue diuresis. He is getting Lasix 80 mg IV twice a day with improvement in his net weight. 2. Potassium and magnesium replacement. 3. Daily weights. 4. Fluid restriction. 5. Continue antibiotics. 6. Serial chemistries. KYRA/ELVIRA DR: KYRA/hilda TID: [id number]
[2021-07-26] MEDS ORDERED: MAGNESIUM SULFATE 1GM 100 ML IV ONE (09:00)
[2021-07-26 10:28] VITALS: BP 156/77
[2021-07-26 15:52] VITALS: BP 149/76
--- NOTE | 2021-07-26 17:36 | NUR ---
SHIFT NOTE Pt resting comfortably throughout shift. 3L of fluid off over course of shift. Pt swelling continues to decrease and pt now able to ambulate to bathroom without pain in groin area. Will continue to monitor. CC, RN
[2021-07-26 19:33] VITALS: BP 130/80
[2021-07-26 23:14] VITALS: BP 128/77
[2021-07-27 05:58] VITALS: BP 126/68
[2021-07-27 06:42] LABS: CALCIUM 7.9 mg/dL (8.5-10.1); GFR 90.5; POTASSIUM 3.7 mmol/L (3.5-5.1)
--- NOTE | 2021-07-27 08:00 | NUR ---
Wound Care Wound Type/Assessment: patient seen per wound care consult. patient has no open wounds at this time. patient has a healed right posterior knee blister. patient stated he had no other wounds at this time. Notified RN about the POC and wound care is signing off at this time, please re-consult if that changes.
[2021-07-27] MEDS: FUROSEMIDE 40 MG/4 ML VIAL IVP SCH ×2 (08:54→16:40)
[2021-07-27] MEDS: LACTOBACILLUS RHAMNOSUS GG 1 CAPSULE. PO SCH ×2 (08:54→20:08)
[2021-07-27] MEDS: POTASSIUM CHLORIDE 20 MEQ TABLET.ER. PO SCH ×2 (08:54→20:08)
[2021-07-27 10:46] VITALS: BP 144/74
[2021-07-27 14:42] VITALS: BP 148/54
[2021-07-27] MEDS ORDERED: LISI40TA6 PO (14:54)
[2021-07-27] MEDS ORDERED: MAGNESIUM SULFATE 2GM 50 ML IV ONE (15:00)
[2021-07-27 20:09] VITALS: BP 144/72
[2021-07-27] MEDS: oxyCODONE IR 5 MG TABLET PO PRN (20:09)
[2021-07-27] MEDS: MAGNESIUM OXIDE 400 MG TABLET PO SCH (20:09)
[2021-07-27] MEDS ORDERED: POTASSIUM CHLORIDE 20 MEQ TABLET.ER. PO SCH (21:00)
--- NOTE | 2021-07-27 22:32 | PN ---
DATE: 07/27/2021 SUBJECTIVE: The patient is resting, slightly propped up in bed, in no apparent distress. He continues to complain of scrotal swelling and pain in his knees. Denied any chest pain or shortness of breath. PHYSICAL EXAMINATION: GENERAL: When I examined him this afternoon, he was pale, not jaundiced, cyanosed. No lymphadenopathy, no thyromegaly, no jugular venous distention. Mild generalized anasarca. VITAL SIGNS: Her heart rate was 84, blood pressure 144/74, temperature was 97.8, respiratory rate 20, and oxygen saturation was 96%. HEAD, EYES, EARS, NOSE, AND THROAT: Normocephalic, atraumatic. NECK: Supple. HEART: Showed normal first and second heart sounds, no gallop, rub or murmur. CHEST: Showed central trachea, equal bilateral chest expansion, air entry, vesicular breath sounds. No crepitation or rhonchi. ABDOMEN: Distended, soft, nontender. NEUROLOGIC: He was awake, alert, responding appropriately. All cranial nerves intact. He moves extremities without difficulty, though he is able to ambulate with a walker. His intake over the last 24 hours was 780, output was 3550. LABORATORY DATA: His most recent white cell count was 4900, hemoglobin 10, hematocrit 30, MCV 109, and platelet count of 81,000. His chemistry this morning showed a serum sodium 136, potassium 3.7, chloride 103, bicarbonate 26, anion gap of 7, BUN 9, creatinine 1, estimated GFR was 90 mL per minute. His glucose 116, calcium was 7.9 and magnesium was 1.4. Total bilirubin is 5.8. AST, ALT, alkaline phosphatase are elevated. His total protein was 6.4, albumin was 2.1. His urinalysis essentially unremarkable. ASSESSMENT: 1. Advanced liver cirrhosis due to alcoholism. 2. Generalized anasarca with marked bilateral lower extremity and scrotal swelling. 3. Anemia. 4. Thrombocytopenia. 5. Degenerative arthritis with chronic low back pain and bilateral degenerative joint disease, both knee joints. 6. Severe hypomagnesemia, with the magnesium only 1.4. PLAN: My plan is to continue with IV Lasix. Continue with IV antibiotic for epididymitis. I will replenish his magnesium. Will monitor his lab work closely. I have already spoken to him about needing to see a baseball coach. I reconciled all his medications and start also PT, OT. MINE/FRANCIE DR: Allyn TID: [id number]
[2021-07-27 22:57] VITALS: BP 132/73
[2021-07-28 05:54] VITALS: BP 127/78
[2021-07-28] MEDS: POTASSIUM CHLORIDE 20 MEQ TABLET.ER. PO SCH ×2 (08:30→20:04)
[2021-07-28] MEDS: PANTOPRAZOLE 40 MG TABLET. PO SCH (08:30)
[2021-07-28] MEDS: LACTOBACILLUS RHAMNOSUS GG 1 CAPSULE. PO SCH ×2 (08:30→20:03)
[2021-07-28] MEDS: SPIRONOLACTONE 25 MG TABLET PO SCH (08:30)
[2021-07-28] MEDS: MAGNESIUM OXIDE 400 MG TABLET PO SCH ×2 (08:31→20:04)
[2021-07-28] MEDS: LISINOPRIL 20 MG TABLET PO SCH (08:31)
[2021-07-28] MEDS: oxyCODONE IR 5 MG TABLET PO PRN ×2 (08:32→20:04)
[2021-07-28] MEDS: FUROSEMIDE 40 MG/4 ML VIAL IVP SCH ×2 (08:32→15:36)
--- NOTE | 2021-07-28 11:01 | NUR ---
CONSULTED WITH JAMILAH IN INFECTIOUS DISEASE. PT NO LONGER NEEDS TO BE IN ISOLATION (10 DAYS SINCE TESTING POSITIVE). PT AFEBRILE.
[2021-07-28 11:54] VITALS: BP 144/77
[2021-07-28 15:29] VITALS: BP 136/69
--- NOTE | 2021-07-28 16:34 | NUR ---
PT INVOLVED IN CARE TODAY, ASKING ABOUT HIS WEIGHT AND HOW TO SUPPORT HIS SCROTUM WHEN HE DISCHARGES. PT STATED THIS MORNING THAT HE FELT LIKE HE WAS GOING TO FALL WHEN GETTING UP TO USE THE RESTROOM. PT ENCOURAGED TO GET UP WITH ASSISTANCE OF STAFF. PT LEGS AND SCROTUM HAVE DECREASED IN SWELLING. PT WANTING TO GO HOME TOMORROW.
[2021-07-28 20:29] VITALS: BP 121/77
[2021-07-28 21:48] LABS: HEMATOCRIT 32.4 % (39.0-53.0); HEMOGLOBIN 10.8 g/dL (13.0-17.5); RED BLOOD COUNT 2.98 x10^6/uL (4.30-5.70); RED CELL DISTRIBUTION WIDTH 15.8 % (11.5-14.5); WHITE BLOOD COUNT 5.4 x10^3/uL (4.0-11.0)
[2021-07-28 22:04] LABS: ALBUMIN 2.1 g/dL (3.4-5.0); ALBUMIN/GLOBULIN RATIO 0.5 (1.0-1.7); CALCIUM 7.9 mg/dL (8.5-10.1); GFR 90.5; POTASSIUM 3.5 mmol/L (3.5-5.1); TOTAL BILIRUBIN 3.2 mg/dL (0.2-1.0); TOTAL PROTEIN 6.7 g/dL (6.4-8.2)
--- NOTE | 2021-07-28 22:17 | PN ---
DATE: 07/28/2021 SUBJECTIVE: The patient is resting, slightly up in bed, in no apparent respiratory distress. He is awake, alert, has been up and about walking with his walker with standby assist. He continued to have scrotal swelling, bilateral lower limb edema, although the swelling is getting slowly down. PHYSICAL EXAMINATION: GENERAL: When I examined him, he was pale. No jaundice, cyanosis or thyromegaly. No jugular venous distention. Mild bilateral lower limb edema, marked scrotal swelling. VITAL SIGNS: His heart rate was 90, blood pressure was 144/77, temperature was 98.3, respiratory rate was 18 and oxygen saturation was 93% on room air. HEAD, EYES, EARS, NOSE, AND THROAT: Normocephalic and atraumatic. NECK: Supple. HEART: Showed normal first and second heart sounds, no gallop or murmur. CHEST: Showed central trachea, equal bilateral chest expansion, air entry, vesicular breath sounds. No crepitation or rhonchi. ABDOMEN: Distended, soft, nontender. NEUROLOGIC: He was awake, alert, responding appropriately. All cranial nerves intact. He moves extremities without difficulty, ambulates with a walker. EXTREMITIES: Showed no clubbing, cyanosis, but bilateral lower limb edema and scrotal swelling. His intake over the last 24 hours is 960, output was 4150. LABORATORY DATA: His most recent white cell count was 4900, hemoglobin 10, hematocrit 30, MCV 109, and platelet count of 81,000. Serum sodium was 136, potassium 3.7, chloride 103, bicarbonate 26, anion gap of 7, BUN 9, creatinine 1, estimated GFR was 90 mL per minute, glucose 116 and calcium was 7.9. ASSESSMENT: 1. Advanced liver cirrhosis due to alcoholism. 2. Generalized anasarca with marked bilateral lower extremity and scrotal swelling due to severe hypoalbuminemia and third spacing. 3. Microcytic anemia. 4. Thrombocytopenia, most likely due to hypersplenism. 5. Degenerative arthritis of both knees and low back. 6. Severe hypomagnesemia with serum magnesium was only 1.4, which he received 2 g of IV magnesium sulfate as well as oral magnesium oxide. PLAN: My plan is to continue with IV antibiotics. Continue with IV Lasix. Continue to replenish magnesium. Continue with physical and occupational therapy and will be discharged home tomorrow. The patient was advised to avoid all nonsteroidal anti-inflammatory medication and Tylenol, and to follow with his primary manager intel, consulting solution director. MINE/AIDA DR: Allyn TID: [id number]
[2021-07-28 23:28] VITALS: BP 99/61
[2021-07-29 05:54] VITALS: BP 125/75
[2021-07-29 07:08] LABS: HEMATOCRIT 31.4 % (39.0-53.0); HEMOGLOBIN 10.6 g/dL (13.0-17.5); RED BLOOD COUNT 2.89 x10^6/uL (4.30-5.70); RED CELL DISTRIBUTION WIDTH 15.8 % (11.5-14.5)
[2021-07-29 07:20] LABS: CALCIUM 7.9 mg/dL (8.5-10.1); CREATININE 0.9 mg/dL (0.7-1.3); GFR 102.2; MAGNESIUM 1.7 mg/dL (1.8-2.4); POTASSIUM 3.5 mmol/L (3.5-5.1)
[2021-07-29] MEDS: POTASSIUM CHLORIDE 20 MEQ TABLET.ER. PO SCH (08:18)
[2021-07-29] MEDS: PANTOPRAZOLE 40 MG TABLET. PO SCH (08:18)
[2021-07-29] MEDS: LISINOPRIL 20 MG TABLET PO SCH (08:18)
[2021-07-29] MEDS: LACTOBACILLUS RHAMNOSUS GG 1 CAPSULE. PO SCH (08:18)
[2021-07-29] MEDS: SPIRONOLACTONE 25 MG TABLET PO SCH (08:19)
[2021-07-29] MEDS: MAGNESIUM OXIDE 400 MG TABLET PO SCH (08:19)
[2021-07-29] MEDS: FUROSEMIDE 40 MG/4 ML VIAL IVP SCH (08:19)
[2021-07-29] MEDS: oxyCODONE IR 5 MG TABLET PO PRN (09:11)
[2021-07-29 11:06] VITALS: BP 109/68
[2021-07-29] MEDS ORDERED: CEFD300C PO ×2 (13:55→14:04)
[2021-07-29] MEDS ORDERED: FURO40TA4 PO ×2 (13:55→14:04)
[2021-07-29] MEDS ORDERED: OXYC5TAB4 PO (13:55)
--- NOTE | 2021-07-29 15:07 | NUR ---
discharge note pt discharged at 1500 via wheel chair accompanied by staff member pt given written and verbal instructions with verbal statement of understanding achieved.
== END 2021-07-29 15:19 | disposition home or self-care (01) | DRG 843 ==
LOC: ER 18:00 → 1 SOUTH 21:43
PROVIDERS: ADMIT Hospitalist; ATTEND Hospitalist
DX: E88.09 Other disorders of plasma-protein metabolism, not elsewhere classified (principal); E43 Unspecified severe protein-calorie malnutrition; Z68.41 Body mass index [BMI] 40.0-44.9, adult; D50.9 Iron deficiency anemia, unspecified; D63.8 Anemia in other chronic diseases classified elsewhere; D69.59 Other secondary thrombocytopenia; E78.5 Hyperlipidemia, unspecified; E83.42 Hypomagnesemia; F10.20 Alcohol dependence, uncomplicated; G89.29 Other chronic pain; I11.0 Hypertensive heart disease with heart failure; I50.9 Heart failure, unspecified; K70.30 Alcoholic cirrhosis of liver without ascites; M17.0 Bilateral primary osteoarthritis of knee; N45.1 Epididymitis; Z80.42 Family history of malignant neoplasm of prostate; Z86.16 Personal history of COVID-19; Z91.14 Patient's other noncompliance with medication regimen; E66.01 Morbid (severe) obesity due to excess calories; Z88.5 Allergy status to narcotic agent; Z88.8 Allergy status to other drugs, medicaments and biological substances; Z91.013 Allergy to seafood
CPT/HCPCS: 36415; 71045; 74176; 76870; 80048; 80053; 81001; 82140; 82248; 83735; 83880; 84443; 84484; 85025; 85027; 85610; 93005; 96365; 96375; 96376; J0696; J1200; J1885; J1940; J3010; J3475; J7120; P9041; 99285-25

== ENCOUNTER → 2021-12-29 | Day surgery (SDC) | payer MEDICARE, OTHER ==
[~2021-12-29] MED LIST changes: +ACETAMINOPHEN 500 MG TABLET PO PRN; +BALANCED SALT IRRIG SOLN NO.2 500 ML IO ONE; +BENZONATATE 100 MG CAPSULE. PO PRN; +BRIMONIDINE 0.2% OPHTH SOLUTION 5ML BOTTLE. OS ONE; +CEFD300C PO; +CEFUROXIME OPHTH 4 MG/0.4 ML SYRINGE. OS ONE; +CHONDROIT-SOD-HYALURONATE KIT. OS ONE; +FURO40TA4 PO; +IBUPROFEN 200 MG TABLET PO PRN; +IPRATRPIUM/ALBUTEROL 0.5/2.5MG 3 ML NEBU. NEB PRN; +IV RINGERS SOLUTION,LACTATED 1,000 ML IV SCH; +LIDO/EPI IN BSS OPHTH 2.7 ML SYRINGE. OS ONE; +LIDOCAINE 2% JELLY 6ML IN APPLICATOR. ONE; +MIDAZOLAM HCL PF 2 MG/2 ML VIAL. IV ONE; +MIDAZOLAM HCL PF 2 MG/2 ML VIAL. ONE; +OMEP20CA16 PO; +ONDANSETRON PF 4 MG/2 ML VIAL. IV PRN; +PHENYLEPHRINE 10% OPHTH SOLUTION 5ML BOTTLE. OS PRN; +POVIDONE-IODINE 5% OPHTH SOLUTION 30ML BOTTLE. OS ONE; +POVIDONE-IODINE 5% OPHTH SOLUTION 30ML BOTTLE. OS PRN; +PROPARACAINE 0.5% OPHTH SOLUTION 15ML BOTTLE. OS ONE; +PROPARACAINE 0.5% OPHTH SOLUTION 15ML BOTTLE. OS PRN; +SILD100T59 PO; +SPIR25TA5 PO; +prednisoLONE ACETATE 1% OPHTH SUSPENSION 5ML BOTTLE. OS ONE
[2021-12-29] MEDS: PHENYLEPHRINE 2.5% OPHTH SOLUTION 2ML BOTTLE. OS SCH ×2 (07:53→08:04)
[2021-12-29] MEDS: TROPICAMIDE 1% OPHTH SOLUTION 15ML BOTTLE. OS SCH ×3 (07:53→08:14)
[2021-12-29] MEDS: TOBRAMYCIN 0.3% OPHTH SOLUTION 5ML BOTTLE. OS SCH ×2 (07:54→08:04)
[2021-12-29] MEDS: KETOROLAC TROMETHAMINE 0.5% OPHTH SOLUTION BOTTLE. OS SCH ×2 (07:54→08:04)
--- NOTE | 2021-12-29 08:57 | PDOC4 ---
SURGEON: Jimmy Hall MD Date of Procedure: 12/29/21 PREOP Diagnosis Visually significant cataract: Left Eye OS POSTOP Diagnosis Same PROCEDURE: Phaco w/ posterior chamber IOL: Left Eye OS ANESTHESIA Deep forniceal periocular 2% Lidocaine jelly Laury/retro bulbar block with 2% Lidocaine with 0.5% Marcaine DESCRIPTION OF PROCEDURE The risks, benefits, and alternatives were discussed with the patient who elected to proceed. Informed consent was obtained in writing and placed in the chart After anesthetizing the eye topically, the patient was taken to the operating room, and the operative eye was prepped and draped in the usual sterile fashion for ocular surgery. A wire lid speculum was placed. A 1-mm clear corneal paracentesis incision was created with the side-port blade at a position three o'clock hours clockwise from the temporal cornea. Then, 1% non-preserved Lidocaine with epinephrine was injected into the anterior chamber followed by viscoelastic. Cotton-tipped applicators were used to stabilize the globe, and a 2.4 mm keratome was used to create a self-sealing incision in clear cornea at the temporal limbus. The Utrata forceps were used to create a continuous curvilinear capsulorrhexis. Balanced saline solution was injected via cannula beneath the capsulorrhexis edge to hydrodissect the lens nucleus and cortex from the lens capsule. The phacoemulsification handpiece and a chopping instrument were then used to remove the lens nucleus. The remaining epinuclear material and cortex were removed with the irrigation/aspiration handpiece. Vis coelastic was used to re-inflate the lens capsule, and the intraocular lens was injected directly into the capsular bag. The corneal wound edges were hydrated with balanced salt solution on a cannula and the irrigation/aspiration handpiece was used to extract the remaining viscoelastic. Cefuroxime 0.1mg/ml / Vigamox 0.5% was injected into the anterior chamber intracamerally. The wounds were inspected and found to be watertight at an appropriate intraocular pressure. Topical antibiotic drops were placed on the corneal surface. LRI: No If Yes, Number [] [place] [] Length [] degrees Depth [] microns Incision [place]: 180 Toric Lens [place] [] Patch/shield with Maxitrol/Tobradex/Erythromycin ointment: Yes No Co-managed patients/postop examination stable for co-management with referring doctor. EBL EBL: None SPECIMANS COLLECTED Specimens Collected: None JIMMY HALL MD Dec 29, 2021 08:57
[2021-12-29 09:07] VITALS: BP 166/99
== END | disposition home or self-care (01) ==
LOC: SURG 07:22
PROVIDERS: ATTEND Ophthalmology
DX: H25.12 Age-related nuclear cataract, left eye (principal); E78.00 Pure hypercholesterolemia, unspecified; K21.9 Gastro-esophageal reflux disease without esophagitis; E66.9 Obesity, unspecified; M19.90 Unspecified osteoarthritis, unspecified site; Z98.890 Other specified postprocedural states; Z79.899 Other long term (current) drug therapy; Z96.653 Presence of artificial knee joint, bilateral; Z87.19 Personal history of other diseases of the digestive system
CPT/HCPCS: 66984; J2250; V2632

== ENCOUNTER → 2022-01-12 | Day surgery (SDC) | payer MEDICARE, OTHER ==
[~2022-01-12] MED LIST changes: +BRIMONIDINE 0.2% OPHTH SOLUTION 5ML BOTTLE. OD ONE; -BRIMONIDINE 0.2% OPHTH SOLUTION 5ML BOTTLE. OS ONE; +CEFUROXIME OPHTH 4 MG/0.4 ML SYRINGE. OD ONE; -CEFUROXIME OPHTH 4 MG/0.4 ML SYRINGE. OS ONE; +CHONDROIT-SOD-HYALURONATE KIT. OD ONE; -CHONDROIT-SOD-HYALURONATE KIT. OS ONE; +LIDO/EPI IN BSS OPHTH 2.7 ML SYRINGE. OD ONE; -LIDO/EPI IN BSS OPHTH 2.7 ML SYRINGE. OS ONE; +PHENYLEPHRINE 10% OPHTH SOLUTION 5ML BOTTLE. OD PRN; -PHENYLEPHRINE 10% OPHTH SOLUTION 5ML BOTTLE. OS PRN; +POVIDONE-IODINE 5% OPHTH SOLUTION 30ML BOTTLE. OD ONE; +POVIDONE-IODINE 5% OPHTH SOLUTION 30ML BOTTLE. OD PRN; -POVIDONE-IODINE 5% OPHTH SOLUTION 30ML BOTTLE. OS ONE; -POVIDONE-IODINE 5% OPHTH SOLUTION 30ML BOTTLE. OS PRN; +PROPARACAINE 0.5% OPHTH SOLUTION 15ML BOTTLE. OD ONE; +PROPARACAINE 0.5% OPHTH SOLUTION 15ML BOTTLE. OD PRN; -PROPARACAINE 0.5% OPHTH SOLUTION 15ML BOTTLE. OS ONE; -PROPARACAINE 0.5% OPHTH SOLUTION 15ML BOTTLE. OS PRN; +prednisoLONE ACETATE 1% OPHTH SUSPENSION 5ML BOTTLE. OD ONE; -prednisoLONE ACETATE 1% OPHTH SUSPENSION 5ML BOTTLE. OS ONE
[2022-01-12] MEDS: TOBRAMYCIN 0.3% OPHTH SOLUTION 5ML BOTTLE. OD SCH ×2 (08:07→08:14)
[2022-01-12] MEDS: PHENYLEPHRINE 2.5% OPHTH SOLUTION 2ML BOTTLE. OD SCH ×3 (08:12→08:17)
[2022-01-12] MEDS: TROPICAMIDE 1% OPHTH SOLUTION 15ML BOTTLE. OD SCH ×3 (08:12→08:17)
[2022-01-12] MEDS: KETOROLAC TROMETHAMINE 0.5% OPHTH SOLUTION BOTTLE. OD SCH ×2 (08:13→08:14)
--- NOTE | 2022-01-12 09:11 | PDOC4 ---
SURGEON: Jimmy Hall MD Date of Procedure: 01/12/22 PREOP Diagnosis Visually significant cataract: Right Eye OD Pre-existing astigmatism: Right Eye OD POSTOP Diagnosis Same PROCEDURE: Phaco w/ posterior chamber IOL: Right Eye OD ANESTHESIA Deep forniceal periocular 2% Lidocaine jelly Laury/retro bulbar block with 2% Lidocaine with 0.5% Marcaine DESCRIPTION OF PROCEDURE The risks, benefits, and alternatives were discussed with the patient who elected to proceed. Informed consent was obtained in writing and placed in the chart After anesthetizing the eye topically, the patient was taken to the operating room, and the operative eye was prepped and draped in the usual sterile fashion for ocular surgery. A wire lid speculum was placed. A 1-mm clear corneal paracentesis incision was created with the side-port blade at a position three o'clock hours clockwise from the temporal cornea. Then, 1% non-preserved Lidocaine with epinephrine was injected into the anterior chamber followed by viscoelastic. Cotton-tipped applicators were used to stabilize the globe, and a 2.4 mm keratome was used to create a self-sealing incision in clear cornea at the temporal limbus. The Utrata forceps were used to create a continuous curvilinear capsulorrhexis. Balanced saline solution was injected v ia cannula beneath the capsulorrhexis edge to hydrodissect the lens nucleus and cortex from the lens capsule. The phacoemulsification handpiece and a chopping instrument were then used to remove the lens nucleus. The remaining epinuclear material and cortex were removed with the irrigation/aspiration handpiece. Viscoelastic was used to re-inflate the lens capsule, and the intraocular lens was injected directly into the capsular bag. The corneal wound edges were hydrated with balanced salt solution on a cannula and the irrigation/aspiration handpiece was used to extract the remaining viscoelastic. Cefuroxime 0.1mg/ml / Vigamox 0.5% was injected into the anterior chamber intracamerally. The wounds were inspected and found to be watertight at an appropriate intraocular pressure. Topical antibiotic drops were placed on the corneal surface. LRI: No If Yes, Number [] [place] [] Length [] degrees Depth [] microns Incision [place]: 180 Toric Lens [place] [103] Patch/shield with Maxitrol/Tobradex/Erythromycin ointment: 2 Yes No Co-managed patients/postop examination stable for co-management with referring doctor. EBL EBL: None SPECIMANS COLLECTED Specimens Collected: None JIMMY HALL MD Jan 12, 2022 09:11
[2022-01-12 09:24] VITALS: BP 186/95
== END | disposition home or self-care (01) ==
LOC: SURG 07:25
PROVIDERS: ATTEND Ophthalmology
DX: H25.11 Age-related nuclear cataract, right eye (principal); H52.201 Unspecified astigmatism, right eye; E78.00 Pure hypercholesterolemia, unspecified; F32.9 Major depressive disorder, single episode, unspecified; G47.30 Sleep apnea, unspecified; M19.90 Unspecified osteoarthritis, unspecified site; I11.0 Hypertensive heart disease with heart failure; I50.9 Heart failure, unspecified; K21.9 Gastro-esophageal reflux disease without esophagitis; E66.9 Obesity, unspecified; Z82.49 Family history of ischemic heart disease and other diseases of the circulatory system; Z98.890 Other specified postprocedural states; Z72.89 Other problems related to lifestyle; Z88.5 Allergy status to narcotic agent; Z91.013 Allergy to seafood; Z98.49 Cataract extraction status, unspecified eye
CPT/HCPCS: 66984; J2250; V2787

== ENCOUNTER → 2022-02-08 | Outpatient (CLI) | payer MEDICARE, OTHER ==
[2022-01-12 09:24] VITALS: BP 186/95
[~2022-02-08] MED LIST changes: -ACETAMINOPHEN 500 MG TABLET PO PRN; -BALANCED SALT IRRIG SOLN NO.2 500 ML IO ONE; -BENZONATATE 100 MG CAPSULE. PO PRN; -BRIMONIDINE 0.2% OPHTH SOLUTION 5ML BOTTLE. OD ONE; -CEFUROXIME OPHTH 4 MG/0.4 ML SYRINGE. OD ONE; -CHONDROIT-SOD-HYALURONATE KIT. OD ONE; -IBUPROFEN 200 MG TABLET PO PRN; -IPRATRPIUM/ALBUTEROL 0.5/2.5MG 3 ML NEBU. NEB PRN; -IV RINGERS SOLUTION,LACTATED 1,000 ML IV SCH; -LIDO/EPI IN BSS OPHTH 2.7 ML SYRINGE. OD ONE; -LIDOCAINE 2% JELLY 6ML IN APPLICATOR. ONE; -MIDAZOLAM HCL PF 2 MG/2 ML VIAL. IV ONE; -MIDAZOLAM HCL PF 2 MG/2 ML VIAL. ONE; -ONDANSETRON PF 4 MG/2 ML VIAL. IV PRN; -PHENYLEPHRINE 10% OPHTH SOLUTION 5ML BOTTLE. OD PRN; -POVIDONE-IODINE 5% OPHTH SOLUTION 30ML BOTTLE. OD ONE; -POVIDONE-IODINE 5% OPHTH SOLUTION 30ML BOTTLE. OD PRN; -PROPARACAINE 0.5% OPHTH SOLUTION 15ML BOTTLE. OD ONE; -PROPARACAINE 0.5% OPHTH SOLUTION 15ML BOTTLE. OD PRN; -prednisoLONE ACETATE 1% OPHTH SUSPENSION 5ML BOTTLE. OD ONE
--- NOTE | 2022-02-09 08:33 | RAD ---
XR KNEE_AP BILAT STANDING, XR KNEE 1-2 VIEWS History: Reason: CHRONIC KNEE PAIN / Spl. Instructions: / History: Technique: 3 views bilateral knees. Comparison: None. Findings: Right knee: Internal fixation right proximal tibia prior fracture. Advanced right knee degenerative c hanges most prominent within the medial and patellofemoral compartments. Degraded evaluation of the p atella on lateral view due to positioning. No dislocation. No acute fracture. Lateral patellar sublux ation. Left knee: Moderate left knee degenerative changes most prominent within the medial and patellofemora l compartments. Lateral patellar subluxation. Probable knee joint effusion. Patellar enthesopathic ch anges. Impression: 1. Advanced right and moderate left knee DJD. Electronically signed by: Jose Guadalupe Fowler DO (02/09/2022 8:31 AM) [id number]
== END ==
LOC: RAD 14:15
PROVIDERS: ATTEND Orthopaedic Surgery Sports Medicine
DX: S83.011A Lateral subluxation of right patella, initial encounter (principal); S83.012A Lateral subluxation of left patella, initial encounter; M17.0 Bilateral primary osteoarthritis of knee; X58.XXXA Exposure to other specified factors, initial encounter; Y93.89 Activity, other specified; Y92.89 Other specified places as the place of occurrence of the external cause; Y99.8 Other external cause status; Z96.698 Presence of other orthopedic joint implants
CPT/HCPCS: 73565; 73560-50